=== PATIENT | female | born 1945 | race Caucasian/White ===

== ENCOUNTER → 2018-03-30 10:24 | Outpatient (CLI) | payer MEDICARE, OTHER, SELFPAY ==
[2018-03-30 13:39] LABS: Basophils # 0.1 K/mm3 (0-0.2); Basophils % 0.7 % (0.1-2.0); Eosinophils # 0.4 K/mm3 (0.0-0.4); Eosinophils % 5.4 % (0.1-12.0); Hematocrit 43.7 % (37.0-47.0); Hemoglobin 13.9 g/dL (12.2-16.2); Lymphocytes # 3.3 K/mm3 (0.7-4.5); Lymphocytes % 40.5 K/mm3 (10-50); Mean Corpuscular HGB Conc 31.9 g/dL (31.8-35.4); Mean Corpuscular Hemoglobin 30.9 pg (27.0-31.2); Mean Corpuscular Volume 96.9 fl (81-99); Monocytes # 0.7 K/mm3 (0.1-1.0); Monocytes % 8.3 % (1.7-9.3); Neutrophils # 3.7 K/mm3 (1.8-7.8); Neutrophils % 45.2 % (37.0-80.0); Platelet Count 219 K/mm3 (142-424); Red Blood Count 4.51 M/mm3 (4.20-5.40); Red Cell Distribution Width 13.2 % (11.5-17.5); White Blood Count 8.2 K/mm3 (4.8-10.8)
[2018-03-30 13:42] LABS: Alanine Aminotransferase 27 U/L (12-78); Albumin Level 3.4 gm/dL (3.4-5.0); Albumin/Globulin Ratio 0.9 (1.1-1.8); Alkaline Phosphatase 55 U/L (46-116); Aspartate Amino Transferase 24 U/L (15-37); Bilirubin,Total 0.2 mg/dL (0.2-1.0); Blood Urea Nitrogen 19 mg/dL (7-18); Carbon Dioxide 25 mmol/L (21.0-32.0); Chloride 101 mmol/L (98-107); Creatinine,Serum 0.76 mg/dL (0.55-1.02); Estimated Glomerular Filt Rate 75 ml/min (>60); GFR (African American) 91 ML/MIN (>60); Globulin 3.7 gm/dl (1.3-3.2); Glucose 190 mg/dL (74-106); Sodium 140 mmol/L (136-145); Total Protein,Serum 7.1 gm/dL (6.4-8.2)
== END ==
PROVIDERS: PCP Nurse Practitioner Family; Visit Provider Nurse Practitioner Family
DX: R31.9 Hematuria, unspecified (principal)
CPT/HCPCS: 36415; 80053; 85025

== ENCOUNTER → 2019-01-05 08:39 | Outpatient (CLI) | payer MEDICARE, OTHER, SELFPAY ==
[2019-01-05 14:05] LABS: Basophils # 0.1 K/mm3 (0-0.2); Basophils % 0.7 % (0.1-2.0); Eosinophils # 0.5 K/mm3 (0.0-0.4); Eosinophils % 5.4 % (0.1-12.0); Hematocrit 44.3 % (37.0-47.0); Hemoglobin 14.8 g/dL (12.2-16.2); Lymphocytes # 3.8 K/mm3 (0.7-4.5); Lymphocytes % 40.9 % (10-50); Mean Corpuscular HGB Conc 33.5 g/dL (31.8-35.4); Mean Corpuscular Volume 98.5 fl (81-99); Mean Platelet Volume 9.1 fl (7.4-10.4); Monocytes # 0.6 K/mm3 (0.1-1.0); Monocytes % 6.8 % (1.7-9.3); Neutrophils # 4.3 K/mm3 (1.8-7.8); Neutrophils % 46.2 % (37.0-80.0); Platelet Count 217 K/mm3 (142-424); Red Blood Count 4.49 M/mm3 (4.20-5.40); Red Cell Distribution Width 13.6 % (11.5-17.5); White Blood Count 9.2 K/mm3 (4.8-10.8)
[2019-01-05 14:39] LABS: Alanine Aminotransferase 80 U/L (12-78); Albumin Level 3.4 gm/dL (3.4-5.0); Albumin/Globulin Ratio 0.9 (1.1-1.8); Alkaline Phosphatase 53 U/L (46-116); Anion Gap 16.4 mEq/L (5-15); Aspartate Amino Transferase 83 U/L (15-37); Bilirubin,Total 0.3 mg/dL (0.2-1.0); Blood Urea Nitrogen 21 mg/dL (7-18); Calcium 10.1 mg/dL (8.5-10.1); Carbon Dioxide 27 mmol/L (21.0-32.0); Chloride 101 mmol/L (98-107); Chol/HDL Ratio 2.6 (1-3.5); Cholesterol 104 mg/dL (140-200); Creatinine,Serum 0.82 mg/dL (0.55-1.02); Estimated Glomerular Filt Rate 68 ml/min (>60); GFR (African American) 83 ML/MIN (>60); Globulin 3.8 gm/dl (1.3-3.2); Glucose 208 mg/dL (74-106); HDL Cholesterol 40 mg/dL (29-89); LDL Cholesterol 35 mg/dL (0-130); Potassium 3.4 mmoL/L (3.5-5.1); Sodium 141 mmol/L (136-145); Total Protein,Serum 7.2 gm/dL (6.4-8.2); Triglycerides 147 mg/dL (30-200); VLDL Cholesterol 29 mg/dL (0-40)
[2019-01-05 14:45] LABS: Hemoglobin A1C 8.4 % (0.0-7.0)
[2019-01-06 13:09] LABS: Microalbumin, Urine 439.7 ug/mL (Not Estab.)
== END ==
PROVIDERS: PCP Physician Assistant; Visit Provider Physician Assistant
DX: I10 Essential (primary) hypertension (principal); E11.9 Type 2 diabetes mellitus without complications; E78.5 Hyperlipidemia, unspecified
CPT/HCPCS: 36415; 80053; 80061; 82043; 83036; 85025

== ENCOUNTER → 2019-01-11 07:05 | Outpatient (CLI) | payer MEDICARE, OTHER, SELFPAY ==
[2019-01-11 13:40] LABS: Anion Gap 16.7 mEq/L (5-15); Blood Urea Nitrogen 20 mg/dL (7-18); Calcium 9.8 mg/dL (8.5-10.1); Carbon Dioxide 26 mmol/L (21.0-32.0); Chloride 103 mmol/L (98-107); Creatinine,Serum 0.99 mg/dL (0.55-1.02); Estimated Glomerular Filt Rate 55 ml/min (>60); GFR (African American) 67 ML/MIN (>60); Glucose 213 mg/dL (74-106); Potassium 3.7 mmoL/L (3.5-5.1); Sodium 142 mmol/L (136-145)
== END ==
PROVIDERS: PCP Physician Assistant; Visit Provider Physician Assistant
DX: E87.6 Hypokalemia (principal)
CPT/HCPCS: 36415; 80048

== ENCOUNTER → 2021-03-21 08:35 | Outpatient (CLI) | payer MEDICARE, OTHER, SELFPAY ==
[2021-03-21 14:49] LABS: Chloride 105 mmol/L (98-107); Sodium 142 mmol/L (136-145)
[2021-03-21 14:51] LABS: Blood Urea Nitrogen 19 mg/dl (7-17); Estimated Glomerular Filt Rate 70 ml/min (>60); GFR (African American) 85 ML/MIN (>60)
[2021-03-21 14:52] LABS: Alanine Aminotransferase 14 U/L (12-78); Albumin/Globulin Ratio 1.5 (1.1-1.8); Alkaline Phosphatase 58 U/L (38-126); Aspartate Amino Transferase 24 U/L (14-36); Bilirubin,Total 0.2 mg/dl (0.2-1.3); Calcium 9.3 mg/dl (8.4-10.2); Carbon Dioxide 27 mmol/L (22.0-30.0); Globulin 2.6 g/dL (1.3-3.2); Glucose 88 mg/dl (74-100); Total Protein,Serum 6.6 g/dl (6.3-8.2)
== END ==
PROVIDERS: Visit Provider Nurse Practitioner Family
DX: I10 Essential (primary) hypertension (principal)
CPT/HCPCS: 36415; 80053

== ENCOUNTER → 2021-08-19 10:47 | Outpatient (CLI) | payer MEDICARE, OTHER, SELFPAY | PROVIDERS: Visit Provider Surgery | DX: Z01.812 Encounter for preprocedural laboratory examination (principal); Z11.52 Encounter for screening for COVID-19; Z12.11 Encounter for screening for malignant neoplasm of colon | CPT/HCPCS: C9803; U0003; U0005 ==

== ENCOUNTER 2021-08-21 09:12 | Day surgery (SDC) | payer MEDICARE, OTHER, SELFPAY ==
[2021-08-16 10:04] VITALS: BMI 31.1
[2021-08-21 09:39] VITALS: BP 152/78; PULSE 83; RESP 18; O2SAT 97
[2021-08-21 10:06] VITALS: O2SAT 98
--- NOTE | 2021-08-21 10:06 | HMH.ANESCL ---
[facility] Anesthesia Checklist - Structural Data Admitted From: Home Planned Operative Procedure/s: colonoscopy Consent for Planned Operative Procedure(s) Verified: Yes - Airway Assessment C-Spine Mobility Assessed: Yes TMJ Mobility Assessed: Yes Dentition: Poor Dentition - Neurological Assessment Level of Consciousness: Awake, Alert, Appropriate - Anesthesia Plan Anesthesia Risk discussed: Yes Anesthesia Plan: Verified ASA Class: III Anesthesia Type: MAC [facility] History I have reviewed the patient's past medical history: Yes Medical History: Reports:: Diabetes Mellitus Type 2, Hyperlipidemia, Myocardial Infarction, Seizures Denies:: Cancer, Internal Pacemaker, MRSA *Have you ever received a pneumonia vaccine?: Yes *Have you received a flu vaccine this season?: Yes Anesthesia experience/problems:: none Other Surgeries: No: Pacemaker Amputation: No Fractures: No - *Social History Last grade of school completed: High school graduate Smoking Status: Never smoker Alcohol Intake: current Alcohol Intake Frequency:: holidays/special occasions only Substance Use Type: denies use *Occupational Status:: retired *Travel in the last 8 weeks: None Family Hx:: No significant family history
[2021-08-21 10:52] VITALS: BP 151/72; PULSE 84; RESP 18; TEMP 36.1; O2SAT 99
--- NOTE | 2021-08-21 10:53 | P.PCN_ITS ---
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 This was done at [facility] by Dr. Kaur back several years ago. She has had several colonoscopies which were aborted by gastroenterology due to sharp angulation and tortuosity of the sigmoid colon without complete evaluation of the colon. Dr. Enriquez did perform a full colonoscopy on 09/12/2015 at which time no adenomatous polyps were removed and he recommended a 5-year follow-up colonoscopy. Performing Provider:: Nicholas Zee MD Referring Provider:: Jennifer Ramos Sedation:: MAC sedation Procedure:: Patient was taken to endoscopy procedure room and positioned in lateral decubitus position. Adequate intravenous sedation was achieved with anesthesia titration of propofol. Variable stiffness Olympus colonoscope was inserted via the anus. With some difficulty it was advanced to the ileocolic anastomosis. Difficulty in advancement was due to extreme angulation and tortuosity of the sigmoid colon. Ileocolic anastomosis was clearly identified. Colonoscope was slowly withdrawn through the colon with careful surveillance. She did have some diverticulosis. However, there were no notable polyps. Retroflexion within the rectum revealed no evidence of any pathologic internal hemorrhoids. Colonoscope was withdrawn. Findings:: Significant angulation and tortuosity of the sigmoid colon Diverticulosis Recommendations:: May consider 5-year follow-up colonoscopy due to history of tubulovillous adenoma with high-grade dysplasia. However, given the patient's colon anatomy, age, and the fact that she had 2 colonoscopies without adenomatous lesions consideration may be given for Cologuard testing and possible contrast enema evaluation in the future. Complications:: None immediately apparent Estimated blood obtained (mL): 1
[2021-08-21 11:02] VITALS: BP 154/79; PULSE 87; RESP 18; O2SAT 98
[2021-08-21 11:12] VITALS: BP 148/71; PULSE 85; RESP 18; O2SAT 98
[2021-08-21 11:32] VITALS: BP 161/72; PULSE 83; RESP 18; O2SAT 98
[2022-07-10 10:54] LABS: POC Glucose,Bedside 106 (70-110)
== END 2021-08-21 11:32 | disposition home or self-care (01) ==
LOC: OUTP 09:15
PROVIDERS: PCP Nurse Practitioner Family; Visit Provider Surgery
PROC: 0DJD8ZZ Inspection of Lower Intestinal Tract, Via Natural or Artificial Opening Endoscopic (ICD-10-PCS; principal; 2021-08-21 10:30)
DX: K56.2 Volvulus (principal); K57.32 Diverticulitis of large intestine without perforation or abscess without bleeding; Z87.19 Personal history of other diseases of the digestive system; Z85.038 Personal history of other malignant neoplasm of large intestine; Z90.49 Acquired absence of other specified parts of digestive tract; E11.9 Type 2 diabetes mellitus without complications; E78.5 Hyperlipidemia, unspecified; I25.2 Old myocardial infarction; Z88.6 Allergy status to analgesic agent; Z88.8 Allergy status to other drugs, medicaments and biological substances; Z88.0 Allergy status to penicillin; Z79.899 Other long term (current) drug therapy
CPT/HCPCS: 45378; 82962

== ENCOUNTER → 2021-09-18 09:37 | Outpatient (CLI) | payer MEDICARE, OTHER, SELFPAY ==
[2021-09-18 14:37] LABS: Basophils # 0.1 K/mm3 (0-0.2); Eosinophils # 0.2 K/mm3 (0.0-0.4); Eosinophils % 3.8 % (0.1-12.0); Hematocrit 40.3 % (37.0-47.0); Hemoglobin 13.2 g/dL (12.2-16.2); Lymphocytes % 47.3 % (10-50); Mean Corpuscular HGB Conc 32.8 g/dL (31.8-35.4); Mean Corpuscular Hemoglobin 33.9 pg (27.0-31.2); Mean Corpuscular Volume 103.4 fl (81-99); Mean Platelet Volume 9.2 fl (7.4-10.4); Monocytes # 0.4 K/mm3 (0.1-1.0); Monocytes % 6.4 % (1.7-9.3); Neutrophils # 2.6 K/mm3 (1.8-7.8); Neutrophils % 41.3 % (37.0-80.0); Platelet Count 251 K/mm3 (142-424); Red Cell Distribution Width 14.4 % (11.5-17.5); White Blood Count 6.4 K/mm3 (4.8-10.8)
[2021-09-18 14:42] LABS: Alanine Aminotransferase 14 U/L (12-78); Albumin Level 3.8 g/dl (3.5-5.0); Albumin/Globulin Ratio 1.4 (1.1-1.8); Alkaline Phosphatase 66 U/L (38-126); Anion Gap 9.4 mEq/L (5-15); Aspartate Amino Transferase 23 U/L (14-36); Bilirubin,Total 0.2 mg/dl (0.2-1.3); Blood Urea Nitrogen 23 mg/dl (7-17); Calcium 9.4 mg/dl (8.4-10.2); Carbon Dioxide 30 mmol/L (22.0-30.0); Chloride 102 mmol/L (98-107); Chol/HDL Ratio 4.1 (1-3.5); Cholesterol 194 mg/dl (140-200); Estimated Glomerular Filt Rate 61 ml/min (>60); GFR (African American) 74 ML/MIN (>60); Globulin 2.8 g/dL (1.3-3.2); Glucose 115 mg/dl (74-100); HDL Cholesterol 47 mg/dl (40-60); Potassium 4.4 mmoL/L (3.5-5.1); Sodium 137 mmol/L (136-145); Total Protein,Serum 6.6 g/dl (6.3-8.2); Triglycerides 184 mg/dl (30-150); VLDL Cholesterol 37 mg/dL (0-40)
[2021-09-18 14:54] LABS: Direct LDL Cholesterol 106.24 mg/dL (100-129)
[2021-09-18 15:01] LABS: Free Thyroxine Index 3.4 ug/dL (5.93-13.13); Triiodothryronine (T3) Uptake 34 % (23.5-40.5)
[2021-09-18 15:14] LABS: Thyroid Stimulating Hormone 2.51 uIU/mL (0.465-4.68)
[2021-09-18 15:18] LABS: Hemoglobin A1C 5.6 % (4.0-6.0)
== END ==
PROVIDERS: Visit Provider Nurse Practitioner Family
DX: I10 Essential (primary) hypertension (principal); E11.9 Type 2 diabetes mellitus without complications; E78.2 Mixed hyperlipidemia; Z79.84 Long term (current) use of oral hypoglycemic drugs
CPT/HCPCS: 36415; 80053; 80061; 82043; 83036; 84436; 84443; 84479; 85025

== ENCOUNTER → 2022-01-09 10:00 | Outpatient (CLI) | payer MEDICARE, OTHER, SELFPAY ==
[2022-01-09 14:36] LABS: Alanine Aminotransferase 17 U/L (12-78); Albumin Level 3.7 g/dl (3.5-5.0); Albumin/Globulin Ratio 1.4 (1.1-1.8); Alkaline Phosphatase 58 U/L (38-126); Anion Gap 10.2 mEq/L (5-15); Aspartate Amino Transferase 22 U/L (14-36); Bilirubin,Total 0.5 mg/dl (0.2-1.3); Blood Urea Nitrogen 32 mg/dl (7-17); Calcium 9.3 mg/dl (8.4-10.2); Carbon Dioxide 27 mmol/L (22.0-30.0); Chloride 107 mmol/L (98-107); Chol/HDL Ratio 3.3 (1-3.5); Cholesterol 164 mg/dl (140-200); Estimated Glomerular Filt Rate 48 ml/min (>60); GFR (African American) 58 ML/MIN (>60); Globulin 2.6 g/dL (1.3-3.2); Glucose 97 mg/dl (74-100); HDL Cholesterol 50 mg/dl (40-60); Potassium 4.2 mmoL/L (3.5-5.1); Sodium 140 mmol/L (136-145); Total Protein,Serum 6.3 g/dl (6.3-8.2); Triglycerides 116 mg/dl (30-150); VLDL Cholesterol 23 mg/dL (0-40)
[2022-01-09 14:38] LABS: Basophils % 0.4 % (0.1-2.0); Eosinophils # 0.3 K/mm3 (0.0-0.4); Eosinophils % 4.4 % (0.1-12.0); Hematocrit 38.1 % (37.0-47.0); Hemoglobin 12.2 g/dL (12.2-16.2); Lymphocytes # 2.3 K/mm3 (0.7-4.5); Lymphocytes % 35.6 % (10-50); Mean Corpuscular HGB Conc 32.1 g/dL (31.8-35.4); Mean Corpuscular Hemoglobin 33.5 pg (27.0-31.2); Mean Corpuscular Volume 104.3 fl (81-99); Mean Platelet Volume 9.8 fl (7.4-10.4); Monocytes # 0.5 K/mm3 (0.1-1.0); Monocytes % 8.4 % (1.7-9.3); Neutrophils # 3.3 K/mm3 (1.8-7.8); Neutrophils % 51.2 % (37.0-80.0); Platelet Count 201 K/mm3 (142-424); Red Blood Count 3.65 M/mm3 (4.20-5.40); White Blood Count 6.4 K/mm3 (4.8-10.8)
[2022-01-09 14:41] LABS: Hemoglobin A1C 5.2 % (4.0-6.0)
[2022-01-09 14:48] LABS: Direct LDL Cholesterol 72.01 mg/dL (100-129)
== END ==
PROVIDERS: Visit Provider Nurse Practitioner Family
DX: I10 Essential (primary) hypertension (principal); E11.9 Type 2 diabetes mellitus without complications; E78.2 Mixed hyperlipidemia; G40.909 Epilepsy, unspecified, not intractable, without status epilepticus; Z79.84 Long term (current) use of oral hypoglycemic drugs
CPT/HCPCS: 36415; 80053; 80061; 82043; 83036; 85025

== ENCOUNTER 2022-01-28 10:00 | Outpatient (RCR) | payer MEDICARE, OTHER, SELFPAY | END 2022-02-11 09:48 | disposition home or self-care (01) | LOC: PT.CARL 10:00 | PROVIDERS: PCP Nurse Practitioner Family; Visit Provider Psychiatry & Neurology Neurology | DX: R26.89 Other abnormalities of gait and mobility (principal) | CPT/HCPCS: 97110; 97112; 97163; 97164; 97530 ==

== ENCOUNTER → 2022-04-29 09:29 | Outpatient (CLI) | payer MEDICARE, OTHER, SELFPAY ==
[2022-04-29 14:53] LABS: Chol/HDL Ratio 2.6 (1-3.5); Cholesterol 109 mg/dl (140-200); HDL Cholesterol 42 mg/dl (40-60); Triglycerides 151 mg/dl (30-150); VLDL Cholesterol 30 mg/dL (0-40)
[2022-04-29 15:05] LABS: C-Reactive Protein 0.7 mg/L (0-4); Direct LDL Cholesterol 35.48 mg/dL (100-129)
[2022-04-29 15:14] LABS: 25-OH Vitamin D, Total 57.8 ng/mL (30-100)
[2022-04-29 15:22] LABS: Erythrocyte Sedimentation Rate 15 mm/hr (0-30)
[2022-04-29 15:28] LABS: Thyroid Stimulating Hormone 0.97 uIU/mL (0.465-4.68)
[2022-04-29 15:39] LABS: Hemoglobin A1C 6.3 % (4.0-6.0)
[2022-05-01 11:13] LABS: RA Latex Turbid. <10.0 IU/mL (<14.0)
[2022-05-03 14:12] LABS: Antinuclear Antibodies, IFA Negative (.)
== END ==
PROVIDERS: PCP Nurse Practitioner; Visit Provider Nurse Practitioner
DX: E11.9 Type 2 diabetes mellitus without complications (principal); E55.9 Vitamin D deficiency, unspecified; M25.539 Pain in unspecified wrist; R53.82 Chronic fatigue, unspecified; Z79.84 Long term (current) use of oral hypoglycemic drugs
CPT/HCPCS: 36415; 80061; 82306; 83036; 84443; 85651; 86038; 86140; 86431

== ENCOUNTER → 2022-09-29 15:00 | Outpatient (CLI) | payer MEDICARE, OTHER, SELFPAY | PROVIDERS: PCP Family Medicine; Visit Provider Family Medicine | DX: J02.9 Acute pharyngitis, unspecified (principal) | CPT/HCPCS: 87070 ==

== ENCOUNTER → 2022-10-20 10:37 | Outpatient (CLI) | payer MEDICARE, OTHER, SELFPAY ==
[2022-10-20 11:23] LABS: Basophils # 0.1 K/mm3 (0-0.2); Basophils % 0.7 % (0.1-2.0); Eosinophils # 0.2 K/mm3 (0.0-0.4); Hematocrit 47.9 % (37.0-47.0); Lymphocytes # 2.3 K/mm3 (0.7-4.5); Lymphocytes % 29.8 % (10-50); Mean Corpuscular HGB Conc 33.4 g/dL (31.8-35.4); Mean Corpuscular Hemoglobin 33.8 pg (27.0-31.2); Mean Corpuscular Volume 101.1 fl (81-99); Mean Platelet Volume 9.4 fl (7.4-10.4); Monocytes # 0.7 K/mm3 (0.1-1.0); Monocytes % 8.8 % (1.7-9.3); Neutrophils # 4.6 K/mm3 (1.8-7.8); Neutrophils % 58.7 % (37.0-80.0); Platelet Count 191 K/mm3 (142-424); Red Blood Count 4.74 M/mm3 (4.20-5.40); Red Cell Distribution Width 13.9 % (11.5-17.5); White Blood Count 7.9 K/mm3 (4.8-10.8)
[2022-10-20 11:50] LABS: Chloride 99 mmol/L (98-107); Free T4 (Free Thyroxine) 1.57 ng/dl (0.78-2.19); Potassium 3.2 mmoL/L (3.5-5.1); Sodium 140 mmol/L (136-145)
[2022-10-20 11:52] LABS: Alanine Aminotransferase 21 U/L (12-78); Aspartate Amino Transferase 37 U/L (14-36); Blood Urea Nitrogen 20 mg/dl (7-17); Estimated Glomerular Filt Rate 44 ml/min (>60); GFR (African American) 53 ML/MIN (>60)
[2022-10-20 11:53] LABS: Albumin/Globulin Ratio 1.3 (1.1-1.8); Alkaline Phosphatase 81 U/L (38-126); Anion Gap 16.2 mEq/L (5-15); Bilirubin,Total 0.4 mg/dl (0.2-1.3); Calcium 9.5 mg/dl (8.4-10.2); Carbon Dioxide 28 mmol/L (22.0-30.0); Globulin 3.1 g/dL (1.3-3.2); Glucose 174 mg/dl (74-100); Total Protein,Serum 7.1 g/dl (6.3-8.2)
== END ==
PROVIDERS: PCP Family Medicine; Visit Provider Family Medicine
DX: R53.1 Weakness (principal)
CPT/HCPCS: 36415; 80053; 84439; 84443; 85025

== ENCOUNTER → 2022-10-21 08:16 | Outpatient (CLI) | payer MEDICARE, OTHER, SELFPAY ==
--- NOTE | 2022-10-21 08:16 | CT_ITS ---
FINAL REPORT CLINICAL HISTORY: weakness and falls FINDINGS: Axial images of the head were obtained without and with contrast. Coronal reformatted images were also obtained. This study was performed with techniques to keep radiation doses as low as reasonably achievable (ALARA). Individualized dose reduction techniques using automated exposure control or adjustment of mA and/or kV according to the patient's size were employed. There is generalized age-appropriate atrophy. There is mild ventriculomegaly. Periventricular low-attenuation areas are seen consistent with mild chronic ischemic changes. There is no evidence of intracranial hemorrhage or mass. There is no evidence of acute infarct. There is no evidence of shift of the midline structures. No skull abnormality is seen on the bone window images. No abnormal contrast enhancement is seen. IMPRESSION: Atrophy and mild periventricular chronic ischemic changes. No acute intracranial abnormality identified. Reviewed, Interpreted and Dictated by Nicholas Dyer III, MD Transcribed by Vasile Pineda Authenticated and [facility]
--- NOTE | 2022-10-21 08:16 | CT_ITS ---
FINAL REPORT TECHNIQUE: Axial images were obtained from the lung bases through the pubic symphysis before and after the administration of intravenous contrast. This study was performed with techniques to keep radiation doses as low as reasonably achievable (ALARA). Individualized dose reduction techniques using automated exposure control or adjustment of mA and/or kV according to the patient's size were employed. CLINICAL HISTORY: abdominal pain FINDINGS: Precontrast images demonstrate no evidence of nephrolithiasis or hydronephrosis. Abdomen: There is a 6 mm noncalcified nodule in the right lung base. There is mild bibasilar atelectasis or scarring. The liver parenchyma is homogeneous. There is evidence of cholecystectomy. The spleen, pancreas and adrenal glands are unremarkable. The kidneys enhance normally. There is no mass or adenopathy identified. There is no evidence of bowel obstruction. Pelvis: The appendix is not identified. Postoperative changes are seen in the colon. There is diverticulosis of the sigmoid colon. There has been hysterectomy. The urinary bladder is unremarkable. There is no mass, free fluid or adenopathy. IMPRESSION: Noncalcified 6 mm are right lung base nodule. Recommend 6 month follow-up. Diverticulosis without evidence of diverticulitis. Reviewed, Interpreted and Dictated by Nicholas Dyer III, MD Transcribed by Vasile Pineda Authenticated and [facility]
--- NOTE | 2022-10-21 08:24 | XR_ITS ---
FINAL REPORT CLINICAL HISTORY: weight loss, weakness, fall FINDINGS: Two views of the chest were obtained. The heart size and pulmonary vascularity are within normal limits. The mediastinum is normal. There is mild left base scarring or atelectasis. There is no pneumothorax. The bony thorax is intact. IMPRESSION: Mild left lung base scarring or atelectasis. Reviewed, Interpreted and Dictated by Nicholas Dyer III, MD Transcribed by Alba Soni Authenticated and . [facility]
== END ==
PROVIDERS: PCP Family Medicine; Visit Provider Family Medicine
DX: R10.9 Unspecified abdominal pain (principal); R53.1 Weakness; W19.XXXA Unspecified fall, initial encounter; R63.4 Abnormal weight loss; Z68.28 Body mass index [BMI] 28.0-28.9, adult
CPT/HCPCS: 70470; 71046; 74178; Q9967

== ENCOUNTER → 2022-11-03 13:05 | Outpatient (CLI) | payer MEDICARE, OTHER, SELFPAY ==
--- NOTE | 2022-11-03 13:50 | US_ITS ---
FINAL REPORT TECHNIQUE: Sonographic images of the thyroid gland were obtained in the longitudinal and transverse planes. CLINICAL HISTORY: low tsh level FINDINGS: The right lobe measures 3.1 x 0.9 x 1.2 cm. The right lobe is homogeneous. There are several small colloid cyst in several solid nodules. There is a hypoechoic nodule in the upper pole measuring 8 mm. The left lobe measures 3.3 x 0.8 x 1.4 cm. The left lobe is homogeneous. There are several small hypoechoic nodules and colloid cysts. The largest nodule measures 5-6 mm. The isthmus measures 2 mm. This is normal. IMPRESSION: Bilateral colloid cysts and thyroid nodules. TI-RADS 4 nodule in the right upper pole measures less than 1 cm. No recommendation due to size. Reviewed, Interpreted and Dictated by Maria Dolores Norton MD Transcribed by Vaishnavi Guallpa Authenticated and [facility]
[2022-11-03 15:57] LABS: T4 (Thyroxine) 11.7 ug/dl (5.53-11.0)
[2022-11-03 16:47] LABS: Vitamin B12 774 pg/mL (239-931)
[2022-11-03 17:05] LABS: Folate > 20.00 ng/mL
[2022-11-05 10:15] LABS: Triiodothyronine (T3) Free 3.4 pg/mL (2.0-4.4); Triiodothyronine (T3) Total 180 ng/dL (71-180)
== END ==
PROVIDERS: PCP Family Medicine; Visit Provider Family Medicine
DX: R63.4 Abnormal weight loss (principal); R79.89 Other specified abnormal findings of blood chemistry; E11.9 Type 2 diabetes mellitus without complications; R53.83 Other fatigue; Z79.84 Long term (current) use of oral hypoglycemic drugs
CPT/HCPCS: 36415; 76536; 82607; 82746; 84436; 84480; 84481

== ENCOUNTER → 2022-12-15 23:38 | Outpatient (CLI) | payer MEDICARE, OTHER, SELFPAY ==
[2022-12-15 17:41] LABS: Microalbumin/Creatinine Ratio 30.2
[2022-12-15 17:50] LABS: Creatinine,Urine Random 37 mg/dL (Not Estab.)
== END ==
PROVIDERS: PCP Family Medicine; Visit Provider Family Medicine
DX: E11.9 Type 2 diabetes mellitus without complications (principal); Z79.84 Long term (current) use of oral hypoglycemic drugs
CPT/HCPCS: 82043; 82570

== ENCOUNTER → 2023-01-09 14:40 | Outpatient (CLI) | payer MEDICARE, OTHER, SELFPAY ==
--- NOTE | 2023-01-09 14:40 | MR_ITS ---
FINAL REPORT TECHNIQUE: Multiplanar and multisequence imaging of the brain was obtained without contrast. CLINICAL HISTORY: Seizure, abnormal movement disorder UNABLE TO REMEMBER THINGS HX OF SEIZURES COMPARISON: none FINDINGS: There is no mass effect or midline shift. There is global atrophy.. There are no areas of abnormal signal intensity. The cerebellum and brainstem have a normal appearance. There are no areas of restricted diffusion on diffusion weighted images to suggest acute infarct. The posterior fossa is unremarkable. There is fluid in the left greater than right mastoid air cells. IMPRESSION: No acute intracranial abnormality. Atrophy. Reviewed, Interpreted and Dictated by Maria Dolores Norton MD Transcribed by Noris Macario Authenticated and [facility]
== END ==
PROVIDERS: PCP Family Medicine; Visit Provider Specialist
DX: G40.909 Epilepsy, unspecified, not intractable, without status epilepticus (principal)
CPT/HCPCS: 70551

== ENCOUNTER → 2023-01-19 15:31 | Outpatient (CLI) | payer MEDICARE, OTHER, SELFPAY ==
--- NOTE | 2023-01-19 15:40 | XR_ITS ---
FINAL REPORT CLINICAL HISTORY: severe lower back pain, falls frequently. FINDINGS: LUMBAR SPINE Seven views including flexion and extension views were obtained. There is no acute fracture. There is no malalignment. There is no abnormal movement with flexion or extension. There are mild and moderate degenerative changes with osteophytes. There is multilevel facet arthropathy. There are moderate vascular calcifications. There are postoperative changes in the abdomen. IMPRESSION: Mild and moderate degenerative changes as above. No abnormal movement with flexion or extension. Reviewed, Interpreted and Dictated by Nicholas Dyer III, MD Transcribed by Alba Soni Authenticated and [facility]
== END ==
PROVIDERS: PCP Family Medicine; Visit Provider Specialist
DX: G89.29 Other chronic pain (principal); M54.50 Low back pain, unspecified
CPT/HCPCS: 72114

== ENCOUNTER → 2023-02-17 08:49 | Outpatient (CLI) | payer MEDICARE, OTHER, SELFPAY ==
[2023-02-17 10:56] LABS: Valproic Acid, (Depakene) 59.5 ug/ml (50-100)
== END ==
PROVIDERS: PCP Family Medicine; Visit Provider Specialist
DX: G40.909 Epilepsy, unspecified, not intractable, without status epilepticus (principal)
CPT/HCPCS: 36415; 80164

== ENCOUNTER 2023-03-11 11:00 | Outpatient (RCR) | payer MEDICARE, OTHER, SELFPAY ==
--- NOTE | 2023-02-02 12:40 | HMH.PTOPEV ---
PT Outpatient Evaluation Rehab PT Outpatient Evaluation Start: 02/02/23 11:07 Freq: Status: Active Protocol: Document 02/02/23 11:07 SIXTO (Rec: 02/02/23 12:39 [email or web address] [id number]) E-signed By Prateek Quinn, PT Outpatient Therapy Subjective History Subjective History Pt. is a 77 year old female whom presents to [facility] in [place] for the initial evaluation this date( 02/02/23) w/ c/o subacute and constant lumbar P!, stiffness, and falls of traumatic onset 2 months ago secondary to falling in her hallway at home . Pt. reports, I've had several falls since I've come here last. Pt. reports Physical Therapy was really helpful the last time for treating gait abnormalaties and imbalance. Pt. reports regressing since previous Physical Therapy. Pt. reports having several falls since coming to previous Physical Therapy, states, I just can't stand up for very long. Pt. vocalizes having an increase in LBP! and muscle weakness w/ prolonged standing/ambulation that can lead to an increase risk for a fall. Pt. also vocalizes having an increase in LBP! w/ prolonged sitting, and laying down in bed. Pt. reports having no symptom relief w/ ice/MHP, denies wanting to take any medication for symptoms. Pt. denies having any injections for current complaint. Recent diagnostic imaging(radiograph) positive for multi-level degenerative changes in the lumbar spine. Pt. denies numbness/tingling into BLEs at this time. Pt. denies history of pacemaker, denies history of cancer(self), denies latex
== END 2023-03-11 12:00 | disposition home or self-care (01) ==
LOC: PT 11:00
PROVIDERS: PCP Family Medicine; Visit Provider Specialist
DX: M54.50 Low back pain, unspecified (principal); G89.29 Other chronic pain
CPT/HCPCS: 97010; 97014; 97035; 97110; 97163; 97535; G0283

== ENCOUNTER → 2023-04-30 12:31 | Outpatient (CLI) | payer MEDICARE, OTHER, SELFPAY ==
--- NOTE | 2023-04-30 12:32 | CT_ITS ---
FINAL REPORT TECHNIQUE: Thin section axial images were obtained from the lung apices through the upper abdomen without contrast. This study was performed with techniques to keep radiation doses as low as reasonably achievable (ALARA). Individualized dose reduction techniques using automated exposure control or adjustment of mA and/or kV according to the patient's size were employed. CLINICAL HISTORY: follow-up on lung nodule prior cxr on 10/21/22 COMPARISON: Abdomen and pelvic CT from 10/21/2022 FINDINGS: There are multiple small mediastinal nodes present but no significant adenopathy is seen. There is a small pericardial effusion present.. There is a right lower lobe nodule, seen best on axial image #50, measuring 8 mm and essentially unchanged since the prior CT of October 2022. Changes of remote granulomatous disease are also present. Limited, unenhanced evaluation of the upper abdomen is without acute abnormality. There is no acute osseous abnormality. IMPRESSION: Stable right lower lobe nodule since prior CT of October 2022. Recommend continued follow-up with chest CT in 6 months. Reviewed, Interpreted and Dictated by Maria Dolores Norton MD Transcribed by Natalie Hughes Authenticated and [facility]
== END ==
PROVIDERS: PCP Family Medicine; Visit Provider Family Medicine
DX: Z87.898 Personal history of other specified conditions (principal)
CPT/HCPCS: 71250

== ENCOUNTER 2023-08-08 12:11 | Emergency (ER) | payer MEDICARE, OTHER, SELFPAY ==
[2023-08-08] VITALS (14 sets, daily range): BP systolic 114–195; BP diastolic 44–77; PULSE 72–87; RESP 14–18; TEMP 36.7–36.8; O2SAT 95–98; BMI 29.0
[2023-08-08 12:33] LABS: Microscopic, Urine URINE MICROSCOPIC (MICROSCOPIC)
--- NOTE | 2023-08-08 12:47 | CT_ITS ---
PROCEDURE INFORMATION: Exam: CT Abdomen And Pelvis With Contrast Exam date and time: 08/08/2023 1:33 PM Age: 77 years old Clinical indication: Abdominal pain; Other: Lower abd pain; Additional info: Low abdominal pain/deion hematuria TECHNIQUE: Imaging protocol: Computed tomography of the abdomen and pelvis with contrast. Radiation optimization: All CT scans at this facility use at least one of these dose optimization techniques: automated exposure control; mA and/or kV adjustment per patient size (includes targeted exams where dose is matched to clinical indication); or iterative reconstruction. Contrast material: ISOVUE; Contrast volume: 75 ml; Contrast route: IV; REPORTING DATA: Count of CT and Cardiac NM exams in prior 12 months: This patient has received 3 known CTs and 0 known cardiac nuclear medicine studies in the 12 months prior to the current study. COMPARISON: CT ABDOMEN PELVIS WO/W CON 10/21/2022 8:55 AM FINDINGS: Lungs: Right lower lobe granuloma. 7 mm right lower lobe nodule is unchanged Liver: No focal hepatic lesions. Gallbladder and bile ducts: There has been a cholecystectomy. Pancreas: No peripancreatic fluid stranding. No main pancreatic ductal dilation. Spleen: No splenomegaly. Multiple splenic granulomas Adrenal glands: The adrenal glands are normal. Kidneys and ureters: Nephrograms are symmetric. No nephrolithiasis or hydroureteronephrosis on either side. No solid lesions Stomach and bowel: Status post right hemicolectomy. Right small bowel loops demonstrate mild fluid distention. No discrete transition point Appendix: There has been an appendectomy. Intraperitoneal space: There is no evidence of free intraperitoneal or pelvic fluid. Vasculature: Aorta is nonaneurysmal. Lymph nodes: No lymphadenopathy. Urinary bladder: Urinary bladder is unremarkable. Reproductive: Status post hysterectomy. Bones/joints: No acute osseous abnormality. Focal enostosis at L2 vertebra. Soft tissues: Unremarkable. IMPRESSION: 1. Nephrograms are symmetric. No nephrolithiasis or hydroureteronephrosis on either side. No solid lesions 2. Mild fluid distention of right small-bowel loops can be seen in the context of enteritis. No discrete transition point. Status post right hemicolectomy. 3. 7 mm right lower lobe noduleFor patients at low risk (minimal or absent history of smoking and of other known risk factors), recommend CT Chest at 6-12 months, then consider CT Chest at 18-24 months. For patients at high risk (history of smoking or of other known risk factors), recommend CT Chest at 6-12 months, then CT Chest at 18-24 months. (Reference: Yumi) REFERENCES: Yumi Sweeney et al. Guidelines for Management of Incidental Pulmonary Nodules Detected on CT Images: From the Fleischner Society 2017. Radiology. 2017;284(1):228-243.
--- NOTE | 2023-08-08 12:49 | HMH.EDGENADL ---
Discharge Plan Disposition Patient Disposition: Home, Self-Care Prescriptions Prescriptions: New cefdinir 300 mg capsule 300 mg PO BID 10 Days Qty: 20 0RF ondansetron 4 mg tablet,disintegrating 4 mg PO Q8H PRN (Reason: nausea and vomiting) 4 Days Qty: 12 0RF No Action montelukast 10 mg tablet 10 mg PO DAILY Qty: 90 3RF pioglitazone 15 mg tablet 15 mg PO DAILY Qty: 90 3RF triamterene-hydrochlorothiazid 37.5-25 mg tablet 1 tab PO DAILY 90 Days Qty: 90 0RF divalproex 250 mg tablet,delayed release (DR/EC) 250 mg PO BID 90 Days Qty: 180 0RF Tradjenta 5 mg tablet 5 mg PO DAILY 90 Days Qty: 90 0RF clopidogrel 75 mg tablet 75 mg PO DAILY 90 Days Qty: 90 1RF metformin 1,000 mg tablet 1,000 mg PO BID 30 Days Qty: 60 0RF glipizide 10 mg tablet 10 mg PO DAILY 90 Days Qty: 90 0RF rosuvastatin 40 mg tablet 40 mg PO DAILY 90 Days Qty: 90 0RF aspirin 81 MG tablet,chewable 81 mg PO DAILY Referrals Follow up/Referrals: Alexander Whitehead MD [Primary Care Provider] - See instructions Activity Restrictions/Add. Instructions Additional Instructions/Restrictions: At this time it was felt you are safe to be discharged home. If new or worsening symptoms please do not hesitate to return the emergency department. Please follow-up with your family doctor this coming week for continued monitoring. Please take your medications as prescribed. Clinical Impressions Clinical Impression: Complicated urinary tract infection, Acute hemorrhagic cystitis Instructions Patient Instructions: DI for Urinary Tract Infection (UTI) Discharge ED Provider: Eldon Ontiveros General Adult HPI General Chief complaint: Urogenital-Female Stated complaint: blood when urinating Time Seen by Provider: 08/08/23 12:28 Mode of Arrival: Ambulatory Source of Information: Patient and Spouse Limitations: No Limitations Description of Symptoms (Recalled from ER Triage Doc. by RN): Patient reports pain with urination and blood in her urine since 11am. History of Present Illness HPI narrative: Patient is a 77-year-old female with past medical history of hypertension, diabetes, or coronary artery disease on dual antiplatelet therapy who presents emergency department for evaluation of deion hematuria. Onset was acute, 11 AM this morning. Lower abdominal pain with associated dysuria and hematuria causing her to present here for continued evaluation. No other acute complaints at this time. Related Data Home Medications Medication Instructions Recorded Confirmed aspirin 81 mg chewable tablet 81 mg PO DAILY Blood thinner 08/16/21 07/27/23 Previous Rx's Medication Instructions Recorded montelukast 10 mg tablet 10 mg PO DAILY #90 tabs 08/20/22 pioglitazone 15 mg tablet 15 mg PO DAILY #90 tabs 08/20/22 triamterene 37.5 1 tab PO DAILY bp 90 days #90 tabs 05/25/23 mg-hydrochlorothiazide 25 mg tablet divalproex 250 mg tablet,delayed 250 mg PO BID seizures 90 days 06/08/23 release #180 tabs linagliptin 5 mg tablet (Tradjenta) 5 mg PO DAILY Diabetes 90 days #90 06/08/23 tabs clopidogrel 75 mg tablet 75 mg PO DAILY Blood thinner 90 07/20/23 days #90 tabs metformin 1,000 mg tablet 1,000 mg PO BID Diabetes 30 days 07/23/23 #60 tabs glipizide 10 mg tablet 10 mg PO DAILY Diabetes 90 days 08/03/23 #90 tabs rosuvastatin 40 mg tablet 40 mg PO DAILY HLD 90 days #90 tabs 08/03/23 cefdinir 300 mg capsule 300 mg PO BID Urinary Tract 08/08/23 Infection 10 days #20 caps ondansetron 4 mg disintegrating 4 mg PO Q8H PRN nausea and 08/08/23 tablet vomiting 4 days #12 tabs Allergies Allergy/AdvReac Type Severity Reaction Status Date / Time codeine [CODEINE] Allergy Intermediate PASSES OUT Verified 05/19/23 13:53 Penicillins [PENICILLINS] Allergy Intermediate I-RASH Verified 05/19/23 13:53 phenytoin [From DILANTIN] Allergy Intermediate PASSES OUT Verified 05/19/23 13:53 [facility] Disclaimer: Antony
[2023-08-08 12:50] LABS: Bilirubin,Urine Negative (Negative); Blood, Urine 3+ (Negative); Glucose,Urine (UA) 2+ (Negative); Ketones,Urine 1+ (Negative); Leukocyte Esterase,Urine 1+ (Negative); Nitrate,Urine POSITIVE (Negative); Protein,Urine 3+ (Negative)
[2023-08-08 12:55] LABS: Appearance,Urine Turbid (Clear); Color,Urine Red (Yellow)
--- NOTE | 2023-08-08 12:56 | PC.NURSE ---
[facility] called to advise we will need another urine sample for send out. Pt made aware.
[2023-08-08 12:57] LABS: Bacteria,Urine 1+ /lpf; RBC,Urine TNTC #/hpf (0-3); Squamous Epithelial Cell,Urine Occasional #/hpf (0-5)
[2023-08-08 13:16] LABS: Basophils # 0.1 K/mm3 (0-0.2); Basophils % 0.4 % (0.1-2.0); Chloride 102 mmol/L (98-107); Eosinophils # 0.2 K/mm3 (0.0-0.4); Eosinophils % 1.7 % (0.1-12.0); Lymphocytes # 2.5 K/mm3 (0.7-4.5); Mean Corpuscular HGB Conc 34.1 g/dL (31.8-35.4); Mean Corpuscular Hemoglobin 34.9 pg (27.0-31.2); Mean Corpuscular Volume 102.4 fl (81-99); Mean Platelet Volume 8.9 fl (7.4-10.4); Monocytes # 0.8 K/mm3 (0.1-1.0); Monocytes % 6.2 % (1.7-9.3); Neutrophils % 73.8 % (37.0-80.0); Platelet Count 184 K/mm3 (142-424); Red Cell Distribution Width 13.7 % (11.5-17.5); Sodium 139 mmol/L (136-145); White Blood Count 13.6 K/mm3 (4.8-10.8)
[2023-08-08 13:19] LABS: Alanine Aminotransferase 43 U/L (12-78); Albumin Level 4.1 g/dl (3.5-5.0); Albumin/Globulin Ratio 1.4 (1.1-1.8); Alkaline Phosphatase 79 U/L (38-126); Aspartate Amino Transferase 50 U/L (14-36); Blood Urea Nitrogen 23 mg/dl (7-17); Carbon Dioxide 26 mmol/L (22.0-30.0); Creatinine Clearance Estimated 52 mL/min (50-200); Estimated Glomerular Filt Rate 61 ml/min (>60); GFR (African American) 73 ML/MIN (>60); Globulin 2.9 g/dL (1.3-3.2)
[2023-08-08 13:20] LABS: Calcium 9.6 mg/dl (8.4-10.2); Glucose 190 mg/dl (74-100)
[2023-08-08 13:22] LABS: Bilirubin,Total 0.1 mg/dl (0.2-1.3)
--- NOTE | 2023-08-08 14:20 | PC.NURSE ---
Dr. Ontiveros at [facility] to update pt on results and POC
--- NOTE | 2023-08-08 14:40 | PC.NURSE ---
Pt given Diet Pepsi for PO challenge
== END 2023-08-08 16:13 | disposition home or self-care (01) ==
PROVIDERS: Emergency Provider Emergency Medicine; PCP Family Medicine
DX: N39.0 Urinary tract infection, site not specified (principal); R10.30 Lower abdominal pain, unspecified; E11.9 Type 2 diabetes mellitus without complications; I25.10 Atherosclerotic heart disease of native coronary artery without angina pectoris; I11.9 Hypertensive heart disease without heart failure; Z79.84 Long term (current) use of oral hypoglycemic drugs; R31.0 Gross hematuria
CPT/HCPCS: 74177; 80053; 81001; 85025; 96361; 96365; 96375; 99284; 99285; J0131; J0696; Q9967

== ENCOUNTER → 2023-08-20 23:10 | Outpatient (CLI) | payer MEDICARE, OTHER, SELFPAY | PROVIDERS: PCP Family Medicine; Visit Provider Nurse Practitioner Family | DX: R30.0 Dysuria (principal) | CPT/HCPCS: 87086 ==

== ENCOUNTER → 2023-09-07 09:32 | Outpatient (CLI) | payer MEDICARE, OTHER, SELFPAY | PROVIDERS: PCP Family Medicine; Visit Provider Family Medicine | DX: R30.0 Dysuria (principal); B96.89 Other specified bacterial agents as the cause of diseases classified elsewhere | CPT/HCPCS: 87086 ==

== ENCOUNTER 2023-09-10 15:13 | Inpatient (IN) | payer MEDICARE, OTHER, SELFPAY ==
[2023-09-10 15:16] VITALS: BP 158/72; PULSE 91; RESP 20; TEMP 36.4; O2SAT 97; BMI 26.7
--- NOTE | 2023-09-10 15:26 | ECG_ITS ---
APPROVED REPORT Exam: Resting ECG HR:91 bpm ECG Measurements Heart Rate 91 AXES GA 153 P 51 QRSd 94 QRS -66 QT 372 T 118 QTc 421 Conclusion SINUS RHYTHM LEFT ANTERIOR FASCICULAR BLOCK [QRS AXIS <= -45, QR IN I, RS IN II] POSSIBLE ANTERIOR MYOCARDIAL INFARCTION , OF INDETERMINATE AGE [30 ms Q WAVE IN V3/V4, OR R < 0.2 mV IN V4] MODERATE T-WAVE ABNORMALITY, CONSIDER LATERAL ISCHEMIA [-0.1+ mV T-WAVE IN I/aVL/V5/V6] ABNORMAL ECG UNCONFIRMED REPORT Electronically signed by : Matteo Dunaway MD 09/11/2023 16:30:45
--- NOTE | 2023-09-10 15:26 | CT_ITS ---
PROCEDURE INFORMATION: Exam: CT Abdomen And Pelvis Without Contrast Exam date and time: 09/10/2023 5:41 PM Age: 77 years old Clinical indication: Abdominal pain; Additional info: Abdominal pain, n/v, weight loss, fatigue TECHNIQUE: Imaging protocol: Computed tomography of the abdomen and pelvis without contrast. Radiation optimization: All CT scans at this facility use at least one of these dose optimization techniques: automated exposure control; mA and/or kV adjustment per patient size (includes targeted exams where dose is matched to clinical indication); or iterative reconstruction. REPORTING DATA: Count of CT and Cardiac NM exams in prior 12 months: This patient has received 4 known CTs and 0 known cardiac nuclear medicine studies in the 12 months prior to the current study. COMPARISON: CT ABDOMEN PELVIS W CON 08/08/2023 1:33 PM FINDINGS: Lungs: Stable 8 mm subpleural nodule in the posterior right lower lobe dating back to 10/21/2022. No older studies available for comparison. Liver: Normal. No mass. Gallbladder and bile ducts: Cholecystectomy. No evident bile duct dilatation. Pancreas: Normal. No ductal dilation. Spleen: Normal. No splenomegaly. Adrenal glands: Normal. No mass. Kidneys and ureters: Normal. No hydronephrosis. Stomach and bowel: Right hemicolectomy to the mid transverse colon level. A few diverticula in the sigmoid. Colon otherwise unremarkable. GI tract structures otherwise unremarkable with no evident wall thickening allowing for incomplete distention. Appendix: Appendix surgically absent with right hemicolectomy. Intraperitoneal space: Unremarkable. No free air. No significant fluid collection. Vasculature: . Atherosclerotic changes of the aorta and iliacs noted. No evidence of aneurysm Lymph nodes: Unremarkable. No enlarged lymph nodes. Urinary bladder: Unremarkable as visualized. Reproductive: Hysterectomy. Bones/joints: Unremarkable. No acute fracture. Soft tissues: Unremarkable. IMPRESSION: 1. No acute abnormalities of the abdomen and pelvis. 2. 8 mm right lower lobe nodule stable dating back to 10/21/2022. For patients at low risk (minimal or absent history of smoking and of other known risk factors), recommend CT Chest at 6-12 months, then consider CT Chest at 18-24 months. For patients at high risk (history of smoking or of other known risk factors), recommend CT Chest at 6-12 months, then CT Chest at 18-24 months. (Reference: Yumi) REFERENCES: Yumi Sweeney et al. Guidelines for Management of Incidental Pulmonary Nodules Detected on CT Images: From the Fleischner Society 2017. Radiology. 2017;284(1):228-243.
--- NOTE | 2023-09-10 15:27 | XR_ITS ---
FINAL REPORT CLINICAL HISTORY: Fatigue, rule out PNA COMPARISON: 10/21/2022 FINDINGS: SINGLE-VIEW CHEST The heart size is normal. Patient is rotated to the right. The mediastinum is normal. There are chronic changes at the bases. There is no pneumothorax. Note is made of cervical fusion hardware. IMPRESSION: No acute cardiopulmonary process. Reviewed, Interpreted and Dictated by Gregorio Tsang MD Transcribed by Sushma Hansen Authenticated and [facility] [place] [place]
[2023-09-10 15:30] VITALS: BP 157/71; PULSE 94; O2SAT 98
[2023-09-10 16:01] VITALS: BP 136/66; PULSE 94; O2SAT 98
--- NOTE | 2023-09-10 16:01 | HMH.EDGENADL ---
Discharge Plan Disposition Patient Disposition: Admitted Condition: Fair Clinical Impressions Clinical Impression: Failure to thrive, FERMIN (acute kidney injury), SIRS (systemic inflammatory response syndrome) Discharge ED Provider: Angelica Alba General Adult HPI General Chief complaint: Weakness Stated complaint: weakness Time Seen by Provider: 09/10/23 15:20 Mode of Arrival: EMS Source of Information: Patient Limitations: No Limitations Description of Symptoms (Recalled from ER Triage Doc. by RN): pt to ed c/o nausea and generalized weakness. pt states she seen her pcp on thursday and was told she had a uti and a yeast infection. History of Present Illness HPI narrative: Patient has a PMHx significant for diabetes, hypertension, CAD without any intervention in the past who presents to the ED with complaints of failure to thrive. For the past several months, patient has reportedly had progressively worsening weakness. Symptoms have acutely worsened over the past week. Patient has been having significant nausea, vomiting, decreased appetite, diffuse body aches and generalized weakness. Patient was reportedly diagnosed with a UTI and a yeast infection on Thursday. Patient is on cefdinir for the UTI. Symptoms are progressively worsened and the patient has become bedridden and thus patient was brought to the ED by family today. Patient has not been able to ambulate on her own over the past week. Related Data Home Medications Medication Instructions Recorded Confirmed aspirin 81 mg chewable tablet 81 mg PO DAILY Blood thinner 08/16/21 09/07/23 Previous Rx's Medication Instructions Recorded montelukast 10 mg tablet 10 mg PO DAILY #90 tabs 08/20/22 pioglitazone 15 mg tablet 15 mg PO DAILY #90 tabs 08/20/22 divalproex 250 mg tablet,delayed 250 mg PO BID seizures 90 days 06/08/23 release #180 tabs clopidogrel 75 mg tablet 75 mg PO DAILY Blood thinner 90 07/20/23 days #90 tabs metformin 1,000 mg tablet 1,000 mg PO BID Diabetes 30 days 07/23/23 #60 tabs glipizide 10 mg tablet 10 mg PO DAILY Diabetes 90 days 08/03/23 #90 tabs rosuvastatin 40 mg tablet 40 mg PO DAILY HLD 90 days #90 tabs 08/03/23 ondansetron 4 mg disintegrating 4 mg PO Q8H PRN nausea and 08/08/23 tablet vomiting 4 days #12 tabs triamterene 37.5 1 tab PO DAILY bp 90 days #90 tabs 08/31/23 mg-hydrochlorothiazide 25 mg tablet fluconazole 150 mg tablet 150 mg PO Q3D yeast infection #7 09/07/23 tabs linagliptin 5 mg tablet (Tradjenta) 5 mg PO DAILY Diabetes 90 days #90 09/07/23 tabs sulfamethoxazole 800 1 tab PO BID #30 tabs 09/07/23 mg-trimethoprim 160 mg tablet Allergies Allergy/AdvReac Type Severity Reaction Status Date / Time codeine [CODEINE] Allergy Intermediate PASSES OUT Verified 09/07/23 11:49 Penicillins [PENICILLINS] Allergy Intermediate I-RASH Verified 09/07/23 11:49 phenytoin [From DILANTIN] Allergy Intermediate PASSES OUT Verified 09/07/23 11:49 PFS PFS Disclaimer: The information contained in this section may have been updated after the patient was seen, as this information can be updated by other users. Medical History (Updated 09/10/23 @ 20:40 by Munira Lee RN) Depression Diabetes mellitus Hypertension Myocardial infarction Surgical History (Updated 09/10/23 @ 20:40 by Munira Lee RN) H/O neck surgery History of appendectomy History of bunionectomy History of cholecystectomy History of colon resection History of hysterectomy Family History Mother Heart attack Cancer Social History (Updated 09/10/23 @ 20:40 by Munira Lee RN) Smoking Status: Never smoker alcohol intake: former substance use type: denies use current occupational status: retired Travel in the last 8 weeks: None household members: spouse housing: house marital status: caffeine: Yes ROS Obtained: Yes All systems reviewed
[2023-09-10 16:44] LABS: Basophils # 0.1 K/mm3 (0-0.2); Basophils % 0.4 % (0.1-2.0); Eosinophils # 0.1 K/mm3 (0.0-0.4); Eosinophils % 0.8 % (0.1-12.0); Hematocrit 49.1 % (37.0-47.0); Hemoglobin 16.3 g/dL (12.2-16.2); Lymphocytes # 2.8 K/mm3 (0.7-4.5); Lymphocytes % 18.2 % (10-50); Mean Corpuscular HGB Conc 33.2 g/dL (31.8-35.4); Mean Corpuscular Hemoglobin 33.3 pg (27.0-31.2); Mean Corpuscular Volume 100.3 fl (81-99); Mean Platelet Volume 9.3 fl (7.4-10.4); Monocytes # 1.2 K/mm3 (0.1-1.0); Neutrophils # 10.9 K/mm3 (1.8-7.8); Neutrophils % 72.5 % (37.0-80.0); Platelet Count 191 K/mm3 (142-424); Red Blood Count 4.89 M/mm3 (4.20-5.40); Red Cell Distribution Width 13.7 % (11.5-17.5)
[2023-09-10 16:45] VITALS: BP 166/36; PULSE 90; O2SAT 99
[2023-09-10 16:47] LABS: Chloride 97 mmol/L (98-107); Potassium 3.6 mmoL/L (3.5-5.1); Sodium 135 mmol/L (136-145)
[2023-09-10 16:49] LABS: Creatinine Clearance Estimated 11 mL/min (50-200); Estimated Glomerular Filt Rate 9 ml/min (>60); GFR (African American) 11 ML/MIN (>60)
[2023-09-10 16:50] LABS: Alanine Aminotransferase 77 U/L (12-78); Albumin Level 4.2 g/dl (3.5-5.0); Albumin/Globulin Ratio 1.4 (1.1-1.8); Alkaline Phosphatase 78 U/L (38-126); Aspartate Amino Transferase 134 U/L (14-36); Bilirubin,Total 0.4 mg/dl (0.2-1.3); Carbon Dioxide 16 mmol/L (22.0-30.0); Globulin 3.1 g/dL (1.3-3.2); Glucose 111 mg/dl (74-100); Lipase 238 U/L (23-300); Total Protein,Serum 7.3 g/dl (6.3-8.2)
[2023-09-10 16:58] LABS: Anion Gap 25.6 mEq/L (5-15)
[2023-09-10 16:59] LABS: Blood Urea Nitrogen 80 mg/dl (7-17); Lactic Acid 5.9 mmol/L (0.7-2.1)
[2023-09-10 17:15] LABS: MANUAL DIFFERENTIAL MANUAL DIFFERENTIAL (MANUAL DIFF)
[2023-09-10 17:39] LABS: Lymphocytes % 16 % (10-50); Monocytes % 3 % (2-9); Neutrophils % 81 % (42-76); Platelet Estimate Normal; RBC Morphology Normal; Total Cells Counted 100
--- NOTE | 2023-09-10 18:39 | PC.NURSE ---
pt refusing to be stuck for second set of blood cultures.
[2023-09-10 18:47] LABS: Coronavirus 19, PCR Not Detected (NotDetected); Influenza A, PCR Not Detected (NotDetected); Influenza B, PCR Not Detected (NotDetected)
[2023-09-10 18:47] LABS: Microscopic, Urine URINE MICROSCOPIC (MICROSCOPIC)
--- NOTE | 2023-09-10 18:57 | PC.NURSE ---
OBSERVATION ADMISSION TO TO 214 WITH DX OF FERMIN TO SERVICE OF THE HOSPITALIST.
[2023-09-10 19:14] LABS: Appearance,Urine CLEAR (Clear); Bilirubin,Urine Negative (Negative); Blood, Urine 3+ (Negative); Color,Urine YELLOW (Yellow); Glucose,Urine (UA) TRACE (Negative); Ketones,Urine TRACE (Negative); Leukocyte Esterase,Urine Negative (Negative); Nitrate,Urine Negative (Negative); PH,Urine 6.5 (5.0-8.5); Protein,Urine 2+ (Negative); Specific Gravity, Urine >= 1.030 (1.005-1.030); Urobilinogen,Urine 0.2 EU/dl (0.2)
[2023-09-10 19:24] VITALS: BP 135/70; PULSE 94; RESP 16; TEMP 36.6; O2SAT 96
--- NOTE | 2023-09-10 19:34 | PC.NURSE ---
pt arrived to floor via stretcher @192
--- NOTE | 2023-09-10 19:53 | EXP.HP ---
History of Present Illness *Admission Date: 09/10/23 *Reason for visit:: increased weakness *History of present illness: This is a 77yo F with PMHx of diabetes, non insulin user, hypertension, CAD without any intervention in the past who presents to the ED with complaints of increased and acute worsening weakness, with failure to thrive, associated with significant nausea, vomiting, decreased appetite, diffuse body aches. Symptoms acutely worsened over the last week Patient was reportedly diagnosed with a UTI and a yeast infection on Thursday. Patient is on cefdinir for the UTI. Symptoms are progressively worsened and the patient has become bedridden and thus patient was brought to the ED by family today. Patient has not been able to ambulate on her own over the past. Admitted for further work up and treatment. [facility] Disclaimer: The information contained in this section may have been updated after the patient was seen, as this information can be updated by other users. Medical History (Updated 09/11/23 @ 01:41 by Kenneth Pate APRN) Depression Diabetes mellitus Hypertension Myocardial infarction Surgical History (Updated 09/10/23 @ 20:40 by Munira Lee RN) H/O neck surgery History of appendectomy History of bunionectomy History of cholecystectomy History of colon resection History of hysterectomy Family History Mother Heart attack Cancer Social History (Updated 09/10/23 @ 20:40 by Munira Lee RN) Smoking Status: Never smoker alcohol intake: former substance use type: denies use current occupational status: retired Travel in the last 8 weeks: None household members: spouse housing: house marital status: caffeine: Yes Review of Systems Review of Systems Review of systems:: pertinent systems reviewed and negative unless documented below Meds Home Medications and Allergies Home Medications Medication Instructions Recorded Confirmed Type aspirin 81 mg chewable tablet 81 mg PO DAILY Blood thinner 08/16/21 09/10/23 History montelukast 10 mg tablet 10 mg PO DAILY #90 tabs 08/20/22 09/10/23 Rx pioglitazone 15 mg tablet 15 mg PO DAILY #90 tabs 08/20/22 09/10/23 Rx divalproex 250 mg tablet,delayed 250 mg PO BID seizures 90 days 06/08/23 09/10/23 Rx release #180 tabs clopidogrel 75 mg tablet 75 mg PO DAILY Blood thinner 90 07/20/23 09/10/23 Rx days #90 tabs metformin 1,000 mg tablet 1,000 mg PO BID Diabetes 30 days 07/23/23 09/10/23 Rx #60 tabs glipizide 10 mg tablet 10 mg PO DAILY Diabetes 90 days 08/03/23 09/10/23 Rx #90 tabs rosuvastatin 40 mg tablet 40 mg PO DAILY HLD 90 days #90 tabs 08/03/23 09/10/23 Rx ondansetron 4 mg disintegrating 4 mg PO Q8H PRN nausea and 08/08/23 09/10/23 Rx tablet vomiting 4 days #12 tabs triamterene 37.5 1 tab PO DAILY bp 90 days #90 tabs 08/31/23 09/10/23 Rx mg-hydrochlorothiazide 25 mg tablet fluconazole 150 mg tablet 150 mg PO Q3D yeast infection #7 09/07/23 09/10/23 Rx tabs linagliptin 5 mg tablet (Tradjenta) 5 mg PO DAILY Diabetes 90 days #90 09/07/23 09/10/23 Rx tabs sulfamethoxazole 800 1 tab PO BID #30 tabs 09/07/23 09/10/23 Rx mg-trimethoprim 160 mg tablet New Prescriptions to Start Prescriptions: Allergies Allergy/AdvReac Type Severity Reaction Status Date / Time codeine [CODEINE] Allergy Intermediate PASSES OUT Verified 09/07/23 11:49 Penicillins [PENICILLINS] Allergy Intermediate I-RASH Verified 09/07/23 11:49 phenytoin [From DILANTIN] Allergy Intermediate PASSES OUT Verified 09/07/23 11:49 Exam Data for Last 24 hours Vital signs and Labs for Last 24 Hours: Temp Pulse Resp BP Pulse Ox O2 Del Method 97.9 F 94 H 16 135/70 99 Room Air 09/10/23 19:24 09/10/23 19:24 09/10/23 19:24 09/10/23 19:24 09/10/23 16:45 09/10/23 19:24 Laboratory Results - last 24 hr 09/10/23 16:25: WBC 15.0 H, RBC 4.89, Hgb 16.3
[2023-09-10 20:00] VITALS: BP 161/83; PULSE 96; RESP 18; TEMP 36.6; O2SAT 97
[2023-09-10 20:35] LABS: Reflex Lactic Add Lactic Reflex
[2023-09-10 21:51] LABS: Lactic Acid Follow Up (RFLX 1) 5.5 mmol/L (0.7-2.1)
[2023-09-10 23:31] LABS: Reflex Lactic (2 hrs) Add Lactic Reflex
[2023-09-11 00:25] LABS: Lactic Acid Follow up (RFLX 2) 4.9 mmol/L (0.7-2.1)
[2023-09-11 04:00] VITALS: BP 146/80; PULSE 95; RESP 16; TEMP 36.6; O2SAT 99; BMI 27.3
[2023-09-11 05:11] LABS: POC Glucose,Bedside 67 (70-110)
--- NOTE | 2023-09-11 06:23 | PC.NURSE ---
patient has no rested tonight. was gave melatonin and vomited within a minute of intake. patient was gave a bed bath tonight and has decreased compliance with assisting in turning in bed. She has to be qued multiple times to help roll. Purewick in place r/t redness on bottom and inability to stand. patient states she lives at home with her , who had trouble getting her up steps the other day . FSBS at 0500 was 67 - pt refused any PO intake (pb, crackers, drinks).
--- NOTE | 2023-09-11 06:45 | PC.NURSE ---
pt just reported i have been having chest pain all night but hasn't reported until 0640. rates 10/10 and says she is soa. no visible distress noted. contacted hospitalist, ekg ordered and pending.
--- NOTE | 2023-09-11 06:49 | ECG_ITS ---
APPROVED REPORT Exam: Resting ECG HR:98 bpm ECG Measurements Heart Rate [address] 160 P 32 QRSd 92 QRS -63 QT 369 T 0 QTc 424 Conclusion SINUS RHYTHM PATTERN CONSISTENT WITH PULMONARY DISEASE LEFT ANTERIOR FASCICULAR BLOCK [QRS AXIS <= -45, QR IN I, RS IN II] NONSPECIFIC ST & T-WAVE ABNORMALITY ABNORMAL ECG UNCONFIRMED REPORT Electronically signed by : Matteo Dunaway MD 09/11/2023 16:29:34
[2023-09-11 06:54] LABS: Chloride 102 mmol/L (98-107)
[2023-09-11 06:55] LABS: Potassium 3.2 mmoL/L (3.5-5.1); Sodium 136 mmol/L (136-145)
[2023-09-11 06:58] LABS: Anion Gap 21.2 mEq/L (5-15); Calcium 8.2 mg/dl (8.4-10.2); Carbon Dioxide 16 mmol/L (22.0-30.0); Creatinine Clearance Estimated 12 mL/min (50-200); Estimated Glomerular Filt Rate 10 ml/min (>60); GFR (African American) 12 ML/MIN (>60)
[2023-09-11 07:00] LABS: Basophils % 0.1 % (0.1-2.0); Eosinophils # 0.1 K/mm3 (0.0-0.4); Eosinophils % 0.8 % (0.1-12.0); Hematocrit 43.8 % (37.0-47.0); Lymphocytes % 18.5 % (10-50); Mean Corpuscular HGB Conc 33.4 g/dL (31.8-35.4); Mean Corpuscular Hemoglobin 33.8 pg (27.0-31.2); Mean Corpuscular Volume 101.1 fl (81-99); Mean Platelet Volume 8.6 fl (7.4-10.4); Monocytes # 1.2 K/mm3 (0.1-1.0); Monocytes % 7.6 % (1.7-9.3); Neutrophils # 11.7 K/mm3 (1.8-7.8); Platelet Count 172 K/mm3 (142-424); Red Blood Count 4.33 M/mm3 (4.20-5.40); Red Cell Distribution Width 13.8 % (11.5-17.5); White Blood Count 16.1 K/mm3 (4.8-10.8)
[2023-09-11 07:08] LABS: Blood Urea Nitrogen 84 mg/dl (7-17); Glucose 45 mg/dl (74-100)
--- NOTE | 2023-09-11 07:09 | PC.NURSE ---
Addendum entered by Marco Samuels RN 09/11/23 07:26: FSBS recheck 149 Addendum entered by Marco Samuels RN 09/11/23 07:17: fsbs 44 - d50W administered per protocol and robbie ordonez Original Note: ATTEMPTED TO REPORT CRITICAL LABS TO HOSPITALIST, NO ANSWER
[2023-09-11 07:13] LABS: MANUAL DIFFERENTIAL MANUAL DIFFERENTIAL (MANUAL DIFF)
[2023-09-11 07:32] LABS: POC Glucose,Bedside 149 (70-110)
[2023-09-11 07:55] LABS: Anisocytosis 1+; Lymphocytes % 22 % (10-50); Macrocytosis 1+; Monocytes % 10 % (2-9); Neutrophils % 68 % (42-76); Total Cells Counted 100
[2023-09-11 07:56] LABS: Ovalocytes 1+; Platelet Estimate Normal
[2023-09-11 08:00] VITALS: BP 134/83; PULSE 98; RESP 17; TEMP 36.7; O2SAT 99
[2023-09-11 08:00] LABS: Hemoglobin 14.7 g/dL (12.2-16.2)
--- NOTE | 2023-09-11 10:32 | SW/DCPLANNER ---
Addendum entered by Yudi Knight 09/14/23 09:02: Sergey danielson/ [facility] stated that she can accept this patient once medically stable for discharge. Addendum entered by Yudi Knight 09/11/23 12:49: After discussion w/ patient and her the patient is agreeable w/ placement and prefers [facility]. Patient information will be faxed to Sergey danielson/ [facility] today. Discharge date is unknown at this time. Original Note: I spoke w/ patient regarding plans once medically stable for discharge. Patient stated that she resides at home w/ her and would prefer I speak w/ him regarding discharge plans. PT/OT evaluated patient and recommended SNF level of care. I called and spoke w/ patient's : he stated that he will be at [facility] in a couple hours and would prefer that myself, and patient speak together in patient's room regarding discharge plans. Discharge date is unknown at this time. I will follow up w/ patient and this morning in room.
--- NOTE | 2023-09-11 11:20 | HMH.PTEV ---
Physical Therapy Evaluation Rehab PT IP Evaluation Start: 09/11/23 00:37 Freq: ONCE Status: Active Protocol: Document 09/11/23 11:04 CJ (Rec: 09/11/23 11:19 CJ [id number]) Subjective/History History History Patient is a 77 year old female admitted to [facility] secondary to FERMIN/SIRS. Patient presented to [facility] ED with secondary to progressive generalized weakness and failure to thrive. Patient was previously ambulatory with RW, but has not been out of bed in over a week. Patient lives at home with her and requires assistance for all ADL's/IADL's . Subjective Subjective I just haven't been feeling well. I think the year is 1945. New diagnosis of cancer in past 12 No months? Rehab PT IP Eval Objective Appearance Patient Behavior Cooperative,Confused Patient Orientation Person,Place Difficulty following instructions mild Speech Pattern Clear,Appropriate Ambulation Patient Able to Ambulate No Balance Ability to Arise Unable Sitting Balance Leans or slides in chair Dynamic Sitting Balance Ability Poor Transfers Bed Transfer Ability Maximum x 2 (75% assist) ROM All Extremities PT ROM Status WFL MMT All Extremities PT MMT WFL Rehab PT IP prob,goals,plan Problems Date of Evaluation: 09/11/23 PT IP Problems Bed Mobility,Transfers,Gait, Balance,Self care,Safety Rehab Potential Rehab Potential Good Plan PT Intervention Plan Bed Mobility,Transfers,Gait, Balance,Self care,Safety, Therapeutic Exercise PT Plan Frequency BID Duration LOS Discharge Goals Bed Transfer Ability Moderate x 2 (50% assist) Sit to Stand Chair Transfer Ability Moderate x 2 (50% assist) Ambulation Assistive Device Rolling Walker Ambulation Distance (feet) 20 Discharge Plan PT Discharge Plan PT suggest that patient would benefit from placement at SNF in order to continue with rehab once found medically stable by MD. Ramos Complexity Eval Charge Codes
[2023-09-11 12:14] LABS: POC Glucose,Bedside 90 (70-110)
[2023-09-11 12:22] LABS: Lactic Acid 2.6 mmol/L (0.7-2.1)
--- NOTE | 2023-09-11 12:36 | HMH.SLDYSPHA ---
Speech & Language Evaluation Speech/Language Dysphagia Evaluation Start: 09/11/23 12:30 Freq: ONCE Status: Active Protocol: Document 09/11/23 12:30 FAISAL (Rec: 09/11/23 12:36 FAISAL [id number]) Dysphagia Assess/Goals/Plan Assessment Date of Evaluation: 09/11/23 Evaluation Type Initial Certification Assessment/Problems dysphagia per MD order Does Patient Qualify for Service No Qualify/Failure Comment Based on CSE, mastication/ manipulation of bolus and swallowing are WFL. No further skilled speech therapy services are warranted at this time. Recommendations PHYSICIAN CERTIFICATION: The specified therapy services are required, authorized, and reviewed every 30 days. Diet Recommendations Normal Liquid Type Recommendations Normal/Thin SL Swallow Guidelines Standard Aspiration Prec. Dysphagia Swallow Precautions/Strategies Sitting Upright (90 deg),Small Bites and Sips Place Food on Either side of Mouth Plan Pt/Guardian verbally ack understanding Yes of dx/prognosis/goals G -code Required No Education Instructions provided Discussed CSE results and recommendations with pt, nursing, and care management all of which expressed understanding. Pt/Caregiver able to recall information Able to recall/restate Reinforcement needed No Speech & Language HPI History Present Illness Description of Patient Problem PMHx significant for diabetes, hypertension, CAD without any intervention in the past who presents to the ED with complaints of failure to thrive. For the past several months, patient has reportedly had progressively worsening weakness. Symptoms have acutely worsened over the past week. Patient has been having significant nausea, vomiting, decreased appetite, diffuse body aches and generalized weakness. CXR reports no acute cardiopulmonary process. Pt has had limited PO intake during admission. Pt/Caregiver Concerns No reports of difficulty. Rehab Services Assessed Speech thera
[2023-09-11 14:10] VITALS: BMI 27.2
[2023-09-11 15:57] LABS: Reflex Lactic Add Lactic Reflex
[2023-09-11 16:00] VITALS: BP 151/62; PULSE 84; RESP 18; TEMP 36.2; O2SAT 99
[2023-09-11 16:42] LABS: Lactic Acid Follow Up (RFLX 1) 2.6 mmol/L (0.7-2.1)
[2023-09-11 17:17] LABS: POC Glucose,Bedside 69 (70-110)
--- NOTE | 2023-09-11 17:28 | EXP.PN ---
Subjective *Date: 09/11/23 *Time: 17:28 Interval history: patient was seen and evaluated at the bedside. denies chest pain, shortness of breath, nausea, vomiting, abdominal pain. Patient does not have any complaints at this time. feels better overall Exam Data for Last 24 hours Vital signs and Labs for Last 24 Hours: Temp Pulse Resp BP Pulse Ox O2 Del Method 97.1 F L 84 18 151/62 H 99 Room Air 09/11/23 16:00 09/11/23 16:00 09/11/23 16:00 09/11/23 16:00 09/11/23 16:00 09/11/23 17:00 Laboratory Results - last 24 hr 09/10/23 16:25: Total Counted 100, Neutrophils % (Manual) 81 H, Lymphocytes % (Manual) 16, Monocytes % (Manual) 3, Platelet Estimate Normal, RBC Morphology Normal 09/10/23 18:42: Urine Color Yellow, Urine Appearance Clear, Urine pH 6.5, Ur Specific [place] >= 1.030, Urine Protein 2+, Urine Glucose (UA) Trace, Urine Ketones Trace, Urine Blood 3+, Urine Nitrate Negative, Urine Bilirubin Negative, Urine Urobilinogen 0.2, Ur Leukocyte Esterase Negative, Urine RBC 3-5, Urine WBC None, Ur Squamous Epith Cells 5-10, Urine Bacteria None 09/10/23 18:43: SARS-CoV-2 (PCR) Not detected, Influenza A Untype (PCR) Not detected, Influenza Type B (PCR) Not detected 09/10/23 21:30: Lactate 5.5 H 09/10/23 23:40: Lactate 4.9 H 09/11/23 05:02: POC Glucose 67 L 09/11/23 06:17: WBC 16.1 H, RBC 4.33, Hgb 14.7, Hct 43.8, MCV 101.1 H, MCH 33.8 H, MCHC 33.4, RDW 13.8, Plt Count 172, MPV 8.6, Neut % (Auto) 73.0, Lymph % (Auto) 18.5, [place] % (Auto) 7.6, Eos % (Auto) 0.8, Baso % (Auto) 0.1, Neut # (Auto) 11.7 H, Lymph # (Auto) 3.0, [place] # (Auto) 1.2 H, Eos # (Auto) 0.1, Baso # (Auto) 0.0, Total Counted 100, Neutrophils % (Manual) 68, Lymphocytes % (Manual) 22, Monocytes % (Manual) 10 H, Platelet Estimate Normal, Anisocytosis 1+, Macrocytosis 1+, Ovalocytes 1+, Sodium 136, Potassium 3.2 L, Chloride 102, Carbon Dioxide 16 L, Anion Gap 21.2 H, BUN 84 H, Creatinine 4.30 H, Estimated Creat Clear 12, Estimated GFR 10 L*, Est GFR ( Amer) 12 L*, Glucose 45 L D, Calcium 8.2 L 09/11/23 07:25: POC Glucose 149 H 09/11/23 11:51: POC Glucose 90 09/11/23 11:53: Lactate 2.6 H 09/11/23 16:20: Lactate 2.6 H 09/11/23 17:08: POC Glucose 69 L I & O for Last 24 hours: Intake & Output 09/08/23 09/09/23 09/10/23 09/11/23 23:59 23:59 23:59 23:59 Intake Total 1234 / 1234 Output Total 0 / 0 0 / 0 Balance 1234 / 1234 Weight 68.492 kg 69.8 kg Constitutional Constitutional: no acute distress *Routine HEENT Exam Head: Present normocephalic Eye: Present EOMI and PERRL ENT: Present mucous membranes moist *Routine Neck Exam Neck: Present supple; Absent lymphadenopathy *Routine Respiratory Exam Respiratory: Present CTA bilaterally *Routine Cardiovascular Exam Cardiovascular: Present RRR *Routine Abdominal Exam Abdominal: Present soft and normoactive bowel sounds; Absent tenderness *Routine Extremities Exam Extremities: Absent cyanosis, clubbing or edema *Routine Skin Exam Skin: Present warm; Absent rash *Routine Neurological Exam Neurological: Present alert and oriented X3 Assessment and Plan *Assessment and plan (1) FERMIN (acute kidney injury): Status: Acute Category: Medical Code(s): N17.9 - Acute kidney failure, unspecified (2) Lactic acidosis: Status: Acute Category: Medical Code(s): E87.20 - Acidosis, unspecified (3) Leukocytosis: Status: Acute Qualifiers: Leukocytosis type: unspecified Qualified Code(s): D72.829 - Elevated white blood cell count, unspecified Category: Medical Code(s): D72.829 - Elevated white blood cell count, unspecified (4) Hypertension: Problem Comment: Currently normotensive Status: Chronic Qualifiers: Hypertension type: unspecified Qualified Code(s): I10 - Essential (primary) hypertension Category: Medical Code(s): I10 - Essential (primary) hypertension (5) Diabetes mellitus: Prob
[2023-09-11 18:26] LABS: Reflex Lactic (2 hrs) Add Lactic Reflex
[2023-09-11 18:43] LABS: POC Glucose,Bedside 72 (70-110)
[2023-09-11 19:01] LABS: Lactic Acid Follow up (RFLX 2) 3.3 mmol/L (0.7-2.1)
[2023-09-11 20:00] VITALS: BP 135/64; PULSE 83; RESP 17; TEMP 36.9; O2SAT 98
[2023-09-11 20:04] LABS: POC Glucose,Bedside 131 (70-110)
[2023-09-12 04:00] VITALS: BP 138/63; PULSE 71; RESP 17; TEMP 36.5; O2SAT 99; BMI 27.4
[2023-09-12 06:23] LABS: POC Glucose,Bedside 102 (70-110)
[2023-09-12 07:53] LABS: Chloride 104 mmol/L (98-107); Sodium 136 mmol/L (136-145)
[2023-09-12 07:55] LABS: Basophils % 0.2 % (0.1-2.0); Eosinophils # 0.1 K/mm3 (0.0-0.4); Eosinophils % 1.2 % (0.1-12.0); Hematocrit 42.1 % (37.0-47.0); Hemoglobin 14.9 g/dL (12.2-16.2); Lymphocytes % 17.1 % (10-50); Mean Corpuscular HGB Conc 35.5 g/dL (31.8-35.4); Mean Corpuscular Hemoglobin 35.4 pg (27.0-31.2); Mean Corpuscular Volume 99.8 fl (81-99); Mean Platelet Volume 9.3 fl (7.4-10.4); Monocytes # 1.2 K/mm3 (0.1-1.0); Monocytes % 10.7 % (1.7-9.3); Neutrophils # 8.2 K/mm3 (1.8-7.8); Neutrophils % 70.7 % (37.0-80.0); Platelet Count 142 K/mm3 (142-424); Red Blood Count 4.22 M/mm3 (4.20-5.40); Red Cell Distribution Width 13.8 % (11.5-17.5); White Blood Count 11.5 K/mm3 (4.8-10.8)
[2023-09-12 07:56] LABS: Anion Gap 13.9 mEq/L (5-15); Calcium 8.1 mg/dl (8.4-10.2); Carbon Dioxide 21 mmol/L (22.0-30.0); Creatinine Clearance Estimated 13 mL/min (50-200); Estimated Glomerular Filt Rate 11 ml/min (>60); GFR (African American) 13 ML/MIN (>60); Glucose 117 mg/dl (74-100)
[2023-09-12 08:00] VITALS: BP 139/62; PULSE 85; RESP 16; TEMP 36.4; O2SAT 96
[2023-09-12 08:04] LABS: Blood Urea Nitrogen 83 mg/dl (7-17); Potassium 2.9 mmoL/L (3.5-5.1)
--- NOTE | 2023-09-12 08:10 | PC.NURSE ---
attempted to call hospitalist to report critical labs. awaiting a call back
[2023-09-12 08:55] LABS: POC Glucose,Bedside 113 (70-110)
--- NOTE | 2023-09-12 09:03 | PC.NURSE ---
pt refused all po medications this am. States she does not want them. she is alert and oriented this am. Pt states she is nonambulatory and takes care of her at home. I checked her glucose. 113
[2023-09-12 11:23] LABS: POC Glucose,Bedside 90 (70-110)
--- NOTE | 2023-09-12 13:17 | PC.NURSE ---
pt max 2 assist to get up to chair with gait belt. She tolerated well. is @ bedside
[2023-09-12 16:00] VITALS: BP 151/65; PULSE 91; RESP 20; TEMP 36.4; O2SAT 100
--- NOTE | 2023-09-12 16:22 | EXP.PN ---
Subjective *Date: 09/12/23 *Time: 16:22 Interval history: patient was seen and evaluated at the bedside. denies chest pain, shortness of breath, nausea, vomiting, abdominal pain. Patient does not have any complaints at this time. feels better overall Exam Data for Last 24 hours Vital signs and Labs for Last 24 Hours: Temp Pulse Resp BP Pulse Ox O2 Del Method 97.6 F 91 H 20 151/65 H 100 Room Air 09/12/23 16:00 09/12/23 16:00 09/12/23 16:00 09/12/23 16:00 09/12/23 16:00 09/12/23 16:00 Laboratory Results - last 24 hr 09/11/23 16:20: Lactate 2.6 H 09/11/23 17:08: POC Glucose 69 L 09/11/23 18:11: POC Glucose 72 09/11/23 18:40: Lactate 3.3 H 09/11/23 19:57: POC Glucose 131 H 09/12/23 06:12: POC Glucose 102 09/12/23 07:35: WBC 11.5 H D, RBC 4.22, Hgb 14.9, Hct 42.1, MCV 99.8 H, MCH 35.4 H, MCHC 35.5 H, RDW 13.8, Plt Count 142, MPV 9.3, Neut % (Auto) 70.7, Lymph % (Auto) 17.1, [place] % (Auto) 10.7 H, Eos % (Auto) 1.2, Baso % (Auto) 0.2, Neut # (Auto) 8.2 H, Lymph # (Auto) 2.0, [place] # (Auto) 1.2 H, Eos # (Auto) 0.1, Baso # (Auto) 0.0, Sodium 136, Potassium 2.9 L*, Chloride 104, Carbon Dioxide 21 L, Anion Gap 13.9, BUN 83 H, Creatinine 4.10 H, Estimated Creat Clear 13, Estimated GFR 11 L*, Est GFR ( Amer) 13 L*, Glucose 117 H, Calcium 8.1 L 09/12/23 08:47: POC Glucose 113 H 09/12/23 11:10: POC Glucose 90 I & O for Last 24 hours: Intake & Output 09/09/23 09/10/23 09/11/2302/23 23:59 23:59 23:59 23:59 Intake Total 2298 / 2298 1610 / 1610 Output Total 0 / 0 600 / 600 600 / 600 Balance 0 30 1698 / 1698 1010 / 1010 Weight 68.492 kg 69.8 kg 70.23 kg Constitutional Constitutional: no acute distress *Routine HEENT Exam Head: Present normocephalic Eye: Present EOMI and PERRL ENT: Present mucous membranes moist *Routine Neck Exam Neck: Present supple; Absent lymphadenopathy *Routine Respiratory Exam Respiratory: Present CTA bilaterally *Routine Cardiovascular Exam Cardiovascular: Present RRR *Routine Abdominal Exam Abdominal: Present soft and normoactive bowel sounds; Absent tenderness *Routine Extremities Exam Extremities: Absent cyanosis, clubbing or edema *Routine Skin Exam Skin: Present warm; Absent rash *Routine Neurological Exam Neurological: Present alert and oriented X3 Assessment and Plan *Assessment and plan (1) FERMIN (acute kidney injury): Status: Acute Category: Medical Code(s): N17.9 - Acute kidney failure, unspecified (2) Lactic acidosis: Status: Acute Category: Medical Code(s): E87.20 - Acidosis, unspecified (3) Leukocytosis: Status: Acute Qualifiers: Leukocytosis type: unspecified Qualified Code(s): D72.829 - Elevated white blood cell count, unspecified Category: Medical Code(s): D72.829 - Elevated white blood cell count, unspecified (4) Hypertension: Problem Comment: Currently normotensive Status: Chronic Qualifiers: Hypertension type: unspecified Qualified Code(s): I10 - Essential (primary) hypertension Category: Medical Code(s): I10 - Essential (primary) hypertension (5) Diabetes mellitus: Problem Comment: Avoid beta-blockers for tremor in patients with diabetes mellitus. Status: Chronic Qualifiers: Diabetes mellitus type: type 2 Diabetes mellitus ocean [employer] intermediary insulin use: without [place] [facility] use Diabetes mellitus complication status: with other specified complication Qualified Code(s): E11.69 - Type 2 diabetes mellitus with other specified complication Category: Medical Code(s): E11.9 - Type 2 diabetes mellitus without complications (6) Coronary artery disease: Status: Chronic Qualifiers: Coronary Disease-Associated Artery/Lesion type: unspecified vessel or lesion type [place] vs. transplanted heart: [place] heart Associated angina: without angina Qualified Code(s): I25.10 - Atherosclerotic heart dis
[2023-09-12 17:12] LABS: POC Glucose,Bedside 74 (70-110)
--- NOTE | 2023-09-12 18:28 | PC.NURSE ---
@ bedside. I spoke with him regarding pt refusing medications. she was able to eat 5-6 bites of soup. otherwise she has refused po intake
[2023-09-12 20:00] VITALS: BP 108/83; PULSE 98; RESP 18; TEMP 36.6; O2SAT 99
--- NOTE | 2023-09-12 22:09 | PC.NURSE ---
Pt refusing medications, medication education given to Pt, Pt states that she can not swallow the meds.
[2023-09-12 22:41] LABS: POC Glucose,Bedside 72 (70-110)
--- NOTE | 2023-09-13 00:52 | PC.NURSE ---
pt has refused to turn all shift but complains shes uncomfortable nurse notified
[2023-09-13 04:00] VITALS: BP 146/68; PULSE 78; RESP 18; TEMP 36.6; O2SAT 97; BMI 27.4
[2023-09-13 05:07] LABS: POC Glucose,Bedside 63 (70-110)
[2023-09-13 05:59] LABS: POC Glucose,Bedside 66 (70-110)
--- NOTE | 2023-09-13 06:03 | PC.NURSE ---
Pt is alert and oriented x4. Pt continues to refuse PO meds and care despite multiple attempts. Pt's IV to right forearm infiltrated and staff was not able to replace after ultrasound guided attempt. Pt stated staff was only allowed to try a ultrasound guided attempt once. Pt glucose was 63 this am and pt was given a sugared snack to raise blood glucose, Pt's glucose was 66 30 minutes later after eating 1/2 of her pudding, gave pt a pepsi. Pt has not reported any pain this shit, and denies needs.
[2023-09-13 07:53] VITALS: PULSE 115; RESP 20; TEMP 37.5; O2SAT 97
[2023-09-13 08:02] LABS: Basophils % 0.4 % (0.1-2.0); Eosinophils % 0.4 % (0.1-12.0); Hematocrit 40.7 % (37.0-47.0); Hemoglobin 14.2 g/dL (12.2-16.2); Lymphocytes # 1.9 K/mm3 (0.7-4.5); Lymphocytes % 16.5 % (10-50); Mean Corpuscular HGB Conc 34.8 g/dL (31.8-35.4); Mean Corpuscular Hemoglobin 34.3 pg (27.0-31.2); Mean Corpuscular Volume 98.4 fl (81-99); Mean Platelet Volume 10.2 fl (7.4-10.4); Monocytes # 2.5 K/mm3 (0.1-1.0); Monocytes % 21.9 % (1.7-9.3); Neutrophils % 60.9 % (37.0-80.0); Platelet Count 104 K/mm3 (142-424); Red Blood Count 4.13 M/mm3 (4.20-5.40); Red Cell Distribution Width 14.1 % (11.5-17.5); White Blood Count 11.6 K/mm3 (4.8-10.8)
[2023-09-13 08:10] LABS: MANUAL DIFFERENTIAL MANUAL DIFFERENTIAL (MANUAL DIFF)
[2023-09-13 08:39] LABS: Chloride 109 mmol/L (98-107); Potassium 3.3 mmoL/L (3.5-5.1); Sodium 135 mmol/L (136-145)
[2023-09-13 08:42] LABS: Anion Gap 13.3 mEq/L (5-15); Blood Urea Nitrogen 78 mg/dl (7-17); Carbon Dioxide 16 mmol/L (22.0-30.0); Creatinine Clearance Estimated 13 mL/min (50-200); Estimated Glomerular Filt Rate 11 ml/min (>60); GFR (African American) 13 ML/MIN (>60); Glucose 118 mg/dl (74-100)
--- NOTE | 2023-09-13 08:44 | PC.NURSE ---
spoke with MD regarding critical lab. has improved from yesterday
[2023-09-13 09:20] LABS: Lymphocytes % 15 % (10-50); Monocytes % 16 % (2-9); Neutrophils % 69 % (42-76); Total Cells Counted 100
[2023-09-13 09:21] LABS: Platelet Estimate Slight Decrease
[2023-09-13 09:23] LABS: RBC Morphology Normal
--- NOTE | 2023-09-13 11:35 | PC.NURSE ---
PICC/Midline insertion attempted x2. unsuccessful insertions r/t unable to access veins r/t edema and adipose tissue in upper arms. pt refused any further attempts. primary RN notified [id number]
[2023-09-13 11:43] LABS: POC Glucose,Bedside 107 (70-110)
--- NOTE | 2023-09-13 12:20 | XR_ITS ---
PROCEDURE INFORMATION: Exam: XR Chest Exam date and time: 09/13/2023 12:48 PM Age: 77 years old Clinical indication: Device placement; Patient HX: Evaluate central line placement. TECHNIQUE: Imaging protocol: Radiologic exam of the chest. Views: 1 view. COMPARISON: CR XR CHEST PORTABLE 09/10/2023 3:58 PM FINDINGS: Tubes, catheters and devices: There is a left-sided central line that has been placed via left subclavian approach whose tip terminates withinr the SVC approximately 4 cm above the cavoatrial junction. Lungs: Minor atelectatic changes left lung base otherwise lung brooke are clear. Pleural spaces: Unremarkable. No pleural effusion. No pneumothorax. Heart/Mediastinum: Unremarkable. No cardiomegaly. Bones/joints: Unremarkable for age. IMPRESSION: Interval placement of left-sided central line in adequate position.
--- NOTE | 2023-09-13 12:47 | EXP.SURG.CON ---
History of Present Illness *Admission Date: 09/10/23 *Reason for visit:: Inadequate venous access *History of present illness: Forwarded from admission H&P: This is a 77yo F with PMHx of diabetes, non insulin user, hypertension, CAD without any intervention in the past who presents to the ED with complaints of increased and acute worsening weakness, with failure to thrive, associated with significant nausea, vomiting, decreased appetite, diffuse body aches. Symptoms acutely worsened over the last week Patient was reportedly diagnosed with a UTI and a yeast infection on Thursday. Patient is on cefdinir for the UTI. Symptoms are progressively worsened and the patient has become bedridden and thus patient was brought to the ED by family today. Patient has not been able to ambulate on her own over the past. Admitted for further work up and treatment. [facility] Disclaimer: The information contained in this section may have been updated after the patient was seen, as this information can be updated by other users. Medical History (Updated 09/13/23 @ 12:48 by Pascual Pitt MD) Depression Diabetes mellitus Hypertension Myocardial infarction Surgical History (Updated 09/10/23 @ 20:40 by Munira Lee RN) H/O neck surgery History of appendectomy History of bunionectomy History of cholecystectomy History of colon resection History of hysterectomy Family History Mother Heart attack Cancer Social History (Updated 09/10/23 @ 20:40 by Munira Lee RN) Smoking Status: Never smoker alcohol intake: former substance use type: denies use current occupational status: retired Travel in the last 8 weeks: None household members: spouse housing: house marital status: caffeine: Yes Meds Home Medications and Allergies Home Medications Medication Instructions Recorded Confirmed Type aspirin 81 mg chewable tablet 81 mg PO DAILY Heart Health 08/16/21 09/11/23 History divalproex 250 mg tablet,delayed 250 mg PO BID seizures 90 days 06/08/23 09/11/23 Rx release #180 tabs metformin 1,000 mg tablet 1,000 mg PO BID Diabetes 30 days 07/23/23 09/11/23 Rx #60 tabs glipizide 10 mg tablet 10 mg PO DAILY Diabetes 90 days 08/03/23 09/11/23 Rx #90 tabs fluconazole 150 mg tablet 150 mg PO Q3D yeast infection #7 09/07/23 09/11/23 Rx tabs linagliptin 5 mg tablet (Tradjenta) 5 mg PO DAILY Diabetes 90 days #90 09/07/23 09/11/23 Rx tabs clopidogrel 75 mg tablet 75 mg PO DAILY Platelet Inhibitor 09/11/23 09/11/23 History ondansetron 4 mg disintegrating 4 mg PO Q8HP PRN nausea and 09/11/23 09/11/23 History tablet vomiting pioglitazone 15 mg tablet 15 mg PO DAILY Diabetes 09/11/23 09/11/23 History rosuvastatin 40 mg tablet 40 mg PO HS Cholesterol 09/11/23 09/11/23 History sulfamethoxazole 800 1 tab PO BID Antibiotic 09/11/23 09/11/23 History mg-trimethoprim 160 mg tablet triamterene 37.5 1 tab PO DAILY Hypertension 09/11/23 09/11/23 History mg-hydrochlorothiazide 25 mg tablet New Prescriptions to Start Prescriptions: Allergies Allergy/AdvReac Type Severity Reaction Status Date / Time codeine [CODEINE] Allergy Intermediate PASSES OUT Verified 09/07/23 11:49 Penicillins [PENICILLINS] Allergy Intermediate I-RASH Verified 09/07/23 11:49 phenytoin [From DILANTIN] Allergy Intermediate PASSES OUT Verified 09/07/23 11:49 Exam (Inpt) Vital signs and Labs for Last 24 Hours: Temp Pulse Resp BP Pulse Ox O2 Del Method 99.5 F 115 H 20 146/68 H 97 Room Air 09/13/23 07:53 09/13/23 07:53 09/13/23 07:53 09/13/23 04:00 09/13/23 07:53 09/13/23 07:53 Laboratory Results - last 24 hr 09/12/23 16:37: POC Glucose 74 09/12/23 22:29: POC Glucose 72 09/13/23 04:59: POC Glucose 63 L 09/13/23 05:52: POC Glucose 66 L 09/13/23 07:35: WBC 11.6 H, RBC 4.13 L, Hgb 14.2, Hct 40.7, MCV 98.4, MCH 34.3 H, MCHC 34.8, RDW 14.1, Plt Cou
--- NOTE | 2023-09-13 12:49 | P.OP_ITS ---
Date of procedure: 09/13/23 Pre-op Diagnosis:: Inadequate venous access Post-op Diagnosis:: Same Procedure performed:: 7 Congolese triple-lumen catheter placement (left subclavian vein access) Surgeon:: Pascual Pitt MD Anesthesia: local Estimated blood loss (mL): 5 Operative findings:: Port flushed without difficulty Operative note:: After informed consent was obtained the patient was maintained in the supine position. Her left neck and chest was prepped and draped in a sterile fashion and she was transferred to a modified Trendelenburg position. After infiltration local anesthetic a large bore needle was utilized to access the left subclavian vein. Utilizing a modified Seldinger technique a 7 Congolese triple-lumen catheter was placed in position and anchored at 17 cm. All ports flushed without difficulty. The port was secured with interrupted silk suture. Dressings were applied. Chest x-ray pending. Condition: other (Unchanged) Disposition: no change Specimens:: None Complications:: No immediate. Chest x-ray pending.
--- NOTE | 2023-09-13 15:49 | EXP.PN ---
Subjective *Date: 09/13/23 *Time: 16:20 Interval history: patient was seen and evaluated at the bedside. denies chest pain, shortness of breath, nausea, vomiting, abdominal pain. Patient does not have any complaints at this time. feels better overall Exam Data for Last 24 hours Vital signs and Labs for Last 24 Hours: Temp Pulse Resp BP Pulse Ox O2 Del Method 99.5 F 115 H 20 146/68 H 97 Room Air 09/13/23 07:53 09/13/23 07:53 09/13/23 07:53 09/13/23 04:00 09/13/23 07:53 09/13/23 13:00 Laboratory Results - last 24 hr 09/12/23 16:37: POC Glucose 74 09/12/23 22:29: POC Glucose 72 09/13/23 04:59: POC Glucose 63 L 09/13/23 05:52: POC Glucose 66 L 09/13/23 07:35: WBC 11.6 H, RBC 4.13 L, Hgb 14.2, Hct 40.7, MCV 98.4, MCH 34.3 H, MCHC 34.8, RDW 14.1, Plt Count 104 L D, MPV 10.2, Neut % (Auto) 60.9, Lymph % (Auto) 16.5, Moffat % (Auto) 21.9 H D, Eos % (Auto) 0.4, Baso % (Auto) 0.4, Neut # (Auto) 7.0, Lymph # (Auto) 1.9, Moffat # (Auto) 2.5 H, Eos # (Auto) 0.0, Baso # (Auto) 0.0, Total Counted 100, Neutrophils % (Manual) 69, Lymphocytes % (Manual) 15, Monocytes % (Manual) 16 H, Platelet Estimate Slight decrease, RBC Morphology Normal, Sodium 135 L, Potassium 3.3 L, Chloride 109 H, Carbon Dioxide 16 L, Anion Gap 13.3, BUN 78 H, Creatinine 4.00 H, Estimated Creat Clear 13, Estimated GFR 11 L*, Est GFR ( Amer) 13 L*, Glucose 118 H, Calcium 8.0 L 09/13/23 11:35: POC Glucose 107 I & O for Last 24 hours: Intake & Output 09/10/23 09/11/23 09/12/23 09/13/23 23:59 23:59 23:59 23:59 Intake Total 2298 / 2298 1710 / 1830 490 / 490 Output Total 0 / 0 600 / 600 950 / 950 1475 / 1475 Balance 1698 / 1698 760 / 880 -985 / -985 Weight 68.492 kg 69.8 kg 70.23 kg 70.36 kg Microbiology Reports for the Last 24 Hours: Microbiology 09/10/23 18:42 Urine,Clean Catch Urine Culture - Final Constitutional Constitutional: no acute distress *Routine HEENT Exam Head: Present normocephalic Eye: Present EOMI and PERRL ENT: Present mucous membranes moist *Routine Neck Exam Neck: Present supple; Absent lymphadenopathy *Routine Respiratory Exam Respiratory: Present CTA bilaterally *Routine Cardiovascular Exam Cardiovascular: Present RRR *Routine Abdominal Exam Abdominal: Present soft and normoactive bowel sounds; Absent tenderness *Routine Extremities Exam Extremities: Absent cyanosis, clubbing or edema *Routine Skin Exam Skin: Present warm; Absent rash *Routine Neurological Exam Neurological: Present alert and oriented X3 Assessment and Plan *Assessment and plan (1) FERMIN (acute kidney injury): Status: Acute Category: Medical Code(s): N17.9 - Acute kidney failure, unspecified (2) Lactic acidosis: Status: Acute Category: Medical Code(s): E87.20 - Acidosis, unspecified (3) Leukocytosis: Status: Acute Qualifiers: Leukocytosis type: unspecified Qualified Code(s): D72.829 - Elevated white blood cell count, unspecified Category: Medical Code(s): D72.829 - Elevated white blood cell count, unspecified (4) Hypertension: Problem Comment: Currently normotensive Status: Chronic Qualifiers: Hypertension type: unspecified Qualified Code(s): I10 - Essential (primary) hypertension Category: Medical Code(s): I10 - Essential (primary) hypertension (5) Diabetes mellitus: Problem Comment: Avoid beta-blockers for tremor in patients with diabetes mellitus. Status: Chronic Qualifiers: Diabetes mellitus complication status: with other specified complication Diabetes mellitus nursing home insulin use: without assistant terminal manager use Diabetes mellitus type: type 2 Qualified Code(s): E11.69 - Type 2 diabetes mellitus with other specified complication Category: Medical Code(s): E11.9 - Type 2 diabetes mellitus without complications (6) Coronary artery disease: Status: Chronic Qualifi
[2023-09-13 16:00] VITALS: BP 136/106; PULSE 91; RESP 20; TEMP 36.9; O2SAT 92
[2023-09-13 18:23] LABS: POC Glucose,Bedside 129 (70-110)
[2023-09-13 20:00] VITALS: BP 163/79; PULSE 90; RESP 18; TEMP 37.1; O2SAT 99
--- NOTE | 2023-09-13 20:01 | PC.NURSE ---
patient refused all PO 2100 medications. educated patient on the importance of taking her scheduled medications, patient verbalized understanding. was at bedside during this time.
[2023-09-13 22:38] LABS: POC Glucose,Bedside 162 (70-110)
[2023-09-14 04:00] VITALS: BP 130/64; PULSE 89; RESP 18; TEMP 36.6; O2SAT 97; BMI 27.6
--- NOTE | 2023-09-14 05:39 | PC.NURSE ---
turned q2h t/o night. triple lumen central line patent with d5LR infusing. glucose has been WNL t/o shift. pure wick removed at 1900 r/t redness/irritation on labia.
[2023-09-14 06:01] LABS: POC Glucose,Bedside 145 (70-110)
[2023-09-14 07:15] LABS: Basophils % 0.1 % (0.1-2.0); Eosinophils # 0.1 K/mm3 (0.0-0.4); Eosinophils % 1.2 % (0.1-12.0); Hematocrit 37.9 % (37.0-47.0); Lymphocytes # 1.5 K/mm3 (0.7-4.5); Lymphocytes % 15.1 % (10-50); Mean Corpuscular HGB Conc 33.5 g/dL (31.8-35.4); Mean Corpuscular Hemoglobin 33.9 pg (27.0-31.2); Mean Corpuscular Volume 101.3 fl (81-99); Mean Platelet Volume 9.4 fl (7.4-10.4); Monocytes # 1.1 K/mm3 (0.1-1.0); Monocytes % 10.5 % (1.7-9.3); Neutrophils # 7.4 K/mm3 (1.8-7.8); Platelet Count 106 K/mm3 (142-424); Red Blood Count 3.74 M/mm3 (4.20-5.40); Red Cell Distribution Width 14.2 % (11.5-17.5); White Blood Count 10.2 K/mm3 (4.8-10.8)
[2023-09-14 07:41] LABS: Hemoglobin 12.7 g/dL (12.2-16.2)
[2023-09-14 07:44] LABS: Chloride 109 mmol/L (98-107); Sodium 136 mmol/L (136-145)
[2023-09-14 07:46] LABS: Alanine Aminotransferase 56 U/L (12-78); Aspartate Amino Transferase 78 U/L (14-36); Blood Urea Nitrogen 74 mg/dl (7-17); Creatinine Clearance Estimated 13 mL/min (50-200); Estimated Glomerular Filt Rate 11 ml/min (>60); GFR (African American) 13 ML/MIN (>60)
[2023-09-14 07:47] LABS: Albumin Level 2.5 g/dl (3.5-5.0); Albumin/Globulin Ratio 0.9 (1.1-1.8); Alkaline Phosphatase 22 U/L (38-126); Bilirubin,Total 0.5 mg/dl (0.2-1.3); Calcium 8.1 mg/dl (8.4-10.2); Carbon Dioxide 21 mmol/L (22.0-30.0); Globulin 2.8 g/dL (1.3-3.2); Glucose 131 mg/dl (74-100); Magnesium 1.5 mg/dl (1.6-2.3); Total Protein,Serum 5.3 g/dl (6.3-8.2)
[2023-09-14 08:00] VITALS: BP 170/71; PULSE 98; RESP 17; TEMP 36.7; O2SAT 92
[2023-09-14 08:07] LABS: Creatine Kinase 1169 U/L (30-135)
--- NOTE | 2023-09-14 09:53 | PC.NURSE ---
RESP CARE NOTE: Pt attempted NIF testing, her results were reported to Dr Tinsley as -19. Will continue to monitor patient accordingly.
--- NOTE | 2023-09-14 10:33 | HMH.OTEV ---
OT Inpatient Evaluation Rehab OT IP Evaluation Start: 09/14/23 07:49 Freq: ONCE Status: Active Protocol: Document 09/14/23 10:26 CYN (Rec: 09/14/23 10:33 CYN [id number]) Rehab OT IP Assessment Subjective History This is a 77yo F with PMHx of diabetes, non insulin user, hypertension, CAD without any intervention in the past who presents to the ED with complaints of increased and acute worsening weakness, with failure to thrive, associated with significant nausea, vomiting, decreased appetite, diffuse body aches. Symptoms acutely worsened over the last week Patient was reportedly diagnosed with a UTI and a yeast infection on Thursday. Patient is on cefdinir for the UTI. Symptoms are progressively worsened and the patient has become bedridden and thus patient was brought to the ED by family today. Patient has not been able to ambulate on her own over the past. Admitted for further work up and treatment. Patient lives at home with . stated that patient was able to complete transfers and ambulation tasks with usage of RW ~1-2 weeks ago. assist with ADLs as needed. Subjective I can try. Patient is dependent with all bed mobility, ADL tasks and fx 'l mobility at this time. Patient reported having high pain tolerance this morning. Objective Patient Orientation Person,Place,Name Right Upper Extremity Gross ROM WFL Left Upper Extremity Gross ROM WFL Bed Mobility bed mobility - supine/sit Assist Level Total/Dependent (100%) Rehab OT IP prob,goals,plan Problems Date of Evaluation: 09/14/23 OT IP Problems Bed Mobility,Transfers,Balance ,Self care,Safety Rehab Potential Rehab Potential
[2023-09-14 13:09] LABS: POC Glucose,Bedside 215 (70-110)
[2023-09-14 15:46] VITALS: BP 134/61; PULSE 99; RESP 16; TEMP 36.9; O2SAT 97
[2023-09-14 17:30] LABS: POC Glucose,Bedside 281 (70-110)
[2023-09-14 17:32] LABS: Chloride 105 mmol/L (98-107)
[2023-09-14 17:33] LABS: Sodium 134 mmol/L (136-145)
[2023-09-14 17:36] LABS: Anion Gap 11.5 mEq/L (5-15); Blood Urea Nitrogen 67 mg/dl (7-17); Calcium 8.3 mg/dl (8.4-10.2); Carbon Dioxide 20 mmol/L (22.0-30.0); Creatinine Clearance Estimated 13 mL/min (50-200); Estimated Glomerular Filt Rate 11 ml/min (>60); GFR (African American) 13 ML/MIN (>60); Glucose 288 mg/dl (74-100); Magnesium 2.3 mg/dl (1.6-2.3)
--- NOTE | 2023-09-14 17:43 | EXP.DC.SUM ---
General Admission date:: 09/10/23 Discharge date: 09/14/23 HPI HPI HPI: This is a 77yo F with PMHx of diabetes, non insulin user, hypertension, CAD without any intervention in the past who presents to the ED with complaints of increased and acute worsening weakness, with failure to thrive, associated with significant nausea, vomiting, decreased appetite, diffuse body aches. Symptoms acutely worsened over the last week Patient was reportedly diagnosed with a UTI and a yeast infection on Thursday. Patient is on cefdinir for the UTI. Symptoms are progressively worsened and the patient has become bedridden and thus patient was brought to the ED by family today. Patient has not been able to ambulate on her own over the past few days. Admitted for further work up and treatment. Hospital Course Hospital Course Hospital Course: 77yo F with PMHx of diabetes, non insulin user, hypertension, CAD without any intervention in the past who presents to the ED with complaints of increased and acute worsening weakness, with failure to thrive, associated with significant nausea, vomiting, decreased appetite, diffuse body aches. ER work up showed significant acute kidney injury with markedly elevated creatinine and diminished GFR. also there is a moderate leukocytosis, lactate acidosis and mild hyponatremia. CXR and CT of abdomen are negative for acute process. Patient was visibly ill-appearing. Admitted to medicine for further management. Has unfortunately had poor response to treatment and has only had worsening progression of her weakness. After reevaluation of her case, further review shows concern for possible neurologic condition such as an ascending paralysis. At this time it is felt the patient would benefit from transfer to a higher level of care with further resources we are unable to administer including neurology and in-house test that we cannot obtain. Along with potential for treatment with IVIG which we are unable to administer. Patient graciously excepted to [place] for transfer. Problems addressed as follows: -FERMIN: Unclear etiology however suspect likely prerenal due to poor p.o. intake. Patient was started on Bactrim for her UTI, this may also be a component in her FERMIN. Gentle hydration for the past several days. BUN has gradually improved from 80s to mid 60s. Creatinine however has improved minimally from high 4-4.1 today. Continuing to make urine. CT abdomen pelvis did not show any hydronephrosis or nephrolithiasis. Baseline creatinine appears to be about 1. Progressive weakness -Unclear etiology. Weakness however from further review and discussion of history with appears to have become more progressive and acute over the past week. Patient received COVID and flu vaccine little over 2 weeks ago. Was diagnosed with UTI last Thursday. Starting last Thursday began to develop worsening weakness in her legs to the point that she could not stand or walk by Thursday. Came to the ER because of her progressive weakness with weakness noted is 1 out of 5 in her legs. This is only progressed over the course of the weekend and patient is unable to move her arms well. Negative inspiratory force on exam this morning of . Patient's voice is more weak and she is having difficulty eating as she is starting to choke and not wanting to eat. Noted to have absent reflexes in her patellar tendons. Significant concern for Guillain-Duque?, myasthenia gravis, or some other progressive neurologic disorder. As I am unable to work this up any further, discussed transfer with multiple facilities. Patient graciously excepted to [place]. Strong concern for further decompensation, need for neurology, need for possible IVIG which we are unable to administer. Rhabdomyolysis -Given patient's immobility, she has an elevated CK at this time. Complaining of muscle aches. CK greater than thousand. Continuing IV fluid resuscitation. Holding statins. HT
[2023-09-14 18:00] LABS: Potassium 2.5 mmoL/L (3.5-5.1)
--- NOTE | 2023-09-14 18:34 | PC.NURSE ---
pt has been a total assist with turning and reposition. ref all po meds due to 'might not be able to swallow them pt did not want to attempt crushing meds. pt has been accepted to [facility] by Dr. Kong, waiting for a call for a bed, aware and currently at bs. pt requesting something to knock me out and help me sleep' md aware and does not want to give sedatives at this time. pt requesting something for pain. cb within reach, continue to monitor.
[2023-09-14 20:00] VITALS: BP 126/79; PULSE 97; RESP 17; TEMP 37; O2SAT 100
--- NOTE | 2023-09-15 00:48 | PC.NURSE ---
pt transported off floor via EMS @00;47
== END 2023-09-15 00:47 | disposition short-term general hospital (02) | DRG 683 ==
LOC: ER 15:50 → 2ND 19:18
PROVIDERS: Internal Medicine Adolescent Medicine; Admitting Provider Internal Medicine; Emergency Provider Emergency Medicine; Visit Provider Internal Medicine
DX: N17.9 Acute kidney failure, unspecified (principal); E87.20 Acidosis, unspecified; N39.0 Urinary tract infection, site not specified; M62.82 Rhabdomyolysis; I10 Essential (primary) hypertension; E11.69 Type 2 diabetes mellitus with other specified complication; I25.10 Atherosclerotic heart disease of native coronary artery without angina pectoris; G40.909 Epilepsy, unspecified, not intractable, without status epilepticus; F32.A Depression, unspecified
CPT/HCPCS: 36415; 71045; 74176; 80048; 80053; 81001; 82550; 82962; 83605; 83690; 83735; 85007; 85025; 87040; 87086; 87636; 92610; 93005; 97110; 97163; 97165; 97530; 99285; C1751; J0131; J1956; J2405; J3475

== ENCOUNTER 2025-08-02 08:26 | Outpatient (CLI) | payer MEDICARE, OTHER, SELFPAY ==
--- OUTSIDE RECORDS SUMMARY | 2025-08-02 08:30 | XMS_ITS | Referral Summary ---
Author Organization [facility] ([place], [place], [place], [place]) Address [address] [place] [address] Care Team Providers Care Camp Housekeeper Name Role Phone Alexander Whitehead MD Primary Care Provider [phone] Allergies Active Allergy Reactions Criticality Noted Date Comments Codeine Other (See Comments),Rash High 10/15/2006 Other reaction(s): PASSES OUT fainting and choking Rosuvastatin Other (See Comments) High 10/07/2023 Severe rhabdomyopathy Hydrocodone Bitartrate Other (See Comments) 06/17/2007 Penicillins Hives,Rash High 10/15/2006 Other reaction(s): I-RASH Phenytoin Other (See Comments),Swelling High 10/15/2006 Other reaction(s): PASSES OUT choking and swelling Medications clopidogreL (PLAVIX) 75 mg tablet Take 1 tablet (75 mg total) by mouth daily. 2 Active divalproex (DEPAKOTE) 250 MG EC tablet Take 1 tablet (250 mg total) by mouth 2 (two) times daily. 3 Active metFORMIN (GLUCOPHAGE) 1000 MG tablet Take 1 tablet (1,000 mg total) by mouth 2 (two) times daily. 2 Active glipiZIDE (GLUCOTROL) 10 MG tablet Take 1 tablet (10 mg total) by mouth daily. 2 Active triamterene-hy droCHLOROthiaz isaiah (MAXZIDE-25) 37.5-25 mg per tablet Take 1 tablet by mouth daily. 3 Active linaGLIPtin (Tradjenta) 5 mg tablet Take 1 tablet (5 mg total) by mouth daily. 3 Active montelukast (SINGULAIR) 10 mg tablet Take 1 tablet (10 mg total) by mouth nightly. Active cyanocobalamin (VITAMIN B-12) 1,000 mcg/mL injection Inject 1 mL (1,000 mcg total) subcutaneously once a week. 1 mL 4 Active clotrimazole (LOTRIMIN) 1 % cream Apply topically. 4 Active fluconazole (DIFLUCAN) 100 MG tablet Take 1 tablet (100 mg total) by mouth daily. 4 Active Fiasp FlexTouch U-100 Insulin 100 unit/mL (3 mL) InPn Inject subcutaneously. 4 Active Lantus Solostar U-100 Insulin 100 unit/mL (3 mL) InPn Inject subcutaneously. 4 Active insulin lispro (HUMALOG, ADMELOG) 100 unit/mL InPn Inject subcutaneously. 4 Active NovoLIN 70/30 U-100 Insulin 100 unit/mL (70-30) injection Inject subcutaneously. 4 Active mirtazapine (REMERON) 15 MG tablet Take by mouth. 4 Active pantoprazole (PROTONIX) 40 MG tablet Take 1 tablet (40 mg total) by mouth daily. 4 Active BD AutoShield Duo Pen Needle 30 gauge x 3/16 Ndle 4 Active predniSONE (DELTASONE) 5 MG tablet Take by mouth. 4 Active tamsulosin (FLOMAX) 0.4 mg Cap 24 hr capsule Take 1 capsule (0.4 mg total) by mouth daily. 4 Active valACYclovir (VALTREX) 1000 MG tablet Take 1 tablet (1,000 mg total) by mouth 2 (two) times daily. 4 Active Active Problems Problem Noted Date Diagnosed Date Weakness 09/15/2023 Hypertension 09/15/2023 09/15/2023 Diabetes mellitus 09/15/2023 09/15/2023 Depression 09/15/2023 09/15/2023 Coronary artery disease 09/15/2023 09/15/20 23 Seizure disorder 09/15/2023 09/15/2023 Urinary tract infectious disease 05/13/2018 09/15/2023 Resolved Problems Problem Noted Date Diagnosed Date Resolved Date Abdominal pain 09/15/2023 09/15/2023 Social History Tobacco Use Types Packs/Day Years Used Date Smoking Tobacco: Never Smokeless Tobacco: Never Tobacco Cessation:Counseling Given: Not Answered Alcohol Use Standard Drinks/Week Comments Not Currently 0 (1 standard drink = 0.6 oz pur e alcohol) PRAPARE - Transportation Answer Date Re corded In the past 12 months, has l ack of transportation kept you from medical appointments or from getting medications? No 09/15/2023 Lack of Transportation (Non-Medical) Not on file 09/15/2023 Food Insecurity Answer Date Recorded Food run out past 12 months Not on file 10/12 Food did not last past 12 months Not on file 10/21/2023 Employment Answer Date Recorded Help finding and keeping a job Not on file 0 10/21/2023 Family and Community Support Answer Andres e Recorded Help with Day to Day Activities Not on file 10/21/2023 Feeling Lonely or Isolated Not on file 10/21 Educational Attainment Answer Date John rded Speak language other than Taiwanese at home Not on file 10/21/2023 Want help with school or training Not on file 10/21/2023 Substance Use Answer Date Recorded Used prescription meds for non-medical reasons N ot on file 10/21/2023 Used illegal drugs past 12 months Not on file 10/21/2023 Comments No Sex and Gender Information Value Date Recorded Sex Assigned at Not on file Legal Sex Female 2:33 PM CDT Gender Identity Not on file Sexual Orientation Not on file Last Filed Vital Signs Vital Sign Reading Time Taken Comments Blood Pressure 113/77 11/18/2023 9:55 AM EST Pulse 102 11/18/2023 9:55 AM EST Temperature 36.7 C (98.1 F) 10/07/2023 5:15 AM EST Respiratory Rate 16 10/07/2023 5:15 AM EST Oxygen Saturation 100% 10/07/2023 10:25 AM EST Inhaled Oxygen Concentration - - Weight 61.2 kg (135 lb) 11/18/2023 12:07 PM EST Height 167.6 cm (5' 6 ) 11/18/2023 12:07 PM EST Body Mass Index 21.79 11/18/2023 12:07 PM EST Plan of Treatment Not on file Procedures Procedure Name Priority Date/Time Associated Diagnosis Comments HEPATITIS C ANTIBODY Routine 09/16/2023 10:50 AM EST from Last 3 Months or Most Recently Relevant to Health Maintenance Results * Hepatitis C antibody (09/16/2023 10:50 AM EST) Hepatitis C Ab Nonreactive Nonreactive, Equivocal 09/16/2023 12:22 PM EST [facility] Comment:A negative test resu lt does not exclude the possibility of exposure to the hepatitis C virus and a reactive result does not exclude co-infection by another hepatitis virus. Blood Venipuncture / Unknown 09/16/2023 10:50 AM EST 09/16/2023 11:15 AM EST Cailin Liu MD LAB BLOOD ORDERABLES Final Resu lt Performing Organization Address City/State/[facility] Co de Phone Number [facility] [address] [phone] from Last 3 Months or Most Recently Relevant to Health Maintenance Insurance MEDICARE PART A B SUPP Advance Directives For more information, please contact: [phone] * Full Code (Latest Code Status on File) Date Activated Date Inactivated Comments 09/15/2023 4:02 AM 10/07/2023 12:06 PM -Attempt R esuscitation if person has no pulse and is not breathing. -If no pulse or not breathing attempt CPR/CODE. -Call Rapid Response if patient is in distress. Care Teams Camp Housekeeper Relationship Specialty Start Date End Date Alexander Whitehead MD [address] [place] [address] [place] [address] PCP - General Family Medicine 09/18/23
--- OUTSIDE RECORDS SUMMARY | 2025-08-02 08:30 | XMS_ITS | Clinical Summary ---
Author Organization [facility] ystem Address [address] [place] [address] Care Team Providers Care Cafeteria Director Name Role Phone Unavailable Primary Care Provider Unavailabl e Social History Tobacco Use Types Packs/Day Years Used Date Smoking Tobacco: Never Assessed Abuse Screen Answer Date Recorded Unsafe at Home or Work/School Not on file Feels Threatened by Someone? Not on file 06/2023 Does Anyone Keep You from Co ntacting Others or Doint Things Outside the Home? Not on file 07/20/2023 Physical Sign of Abuse Present Not on file 1 Housing Stability Answer Date Recorded Current Living Arrangements Not on file 06/2023 Potentially Unsafe Housing Conditions Not on haris e 07/20/2023 Family and Community Support Answer Andres e Recorded Help with Day-to-Day Activities Not on file 07/20/2023 Lonely or Isolated Not on file 07/20/2023 Employment Answer Date Recorded Do you want help finding or keeping work or a amanda b? Not on file 07/20/2023 Disabilities Answer Date Recorded Concentrating, Remembering, or Making Decisions Difficulty Not on file 07/20/2023 Doing Errands Independently Difficulty Not on fi le 07/20/2023 Education Answer Date Recorded Help with school or training? Not on file Preferred Language Not on file 07/20/2023 Comments Unknown Sex and Gender Information Value Date Recorded Sex Assigned at Not on file Legal Sex Female 10:02 AM EDT Gender Identity Not on file Sexual Orientation Not on file Last Filed Vital Signs Vital Sign Reading Time Taken Comments Blood Pressure 110/68 04/18/2014 11:36 AM EDT Pulse - - Temperature - - Respiratory Rate - - Oxygen Saturation - - Inhaled Oxygen Concentration - - Weight 78.9 kg (174 lb 0.2 oz) 04/18/2014 11:36 AM EDT Height 157.5 cm (5' 2 ) 04/18/2014 11:36 AM EDT Body Mass Index 31.83 04/18/2014 11:36 AM EDT Plan of Treatment Health Maintenance Due Date Last Done Comments ANNUAL PHYSICAL 1945 DXA SCAN 1945 HEPATITIS C SCREENING 1945 TDAP/TD VACCINES (1 - Tdap) 1964 Pneumococcal Vaccine 50+ (1 of 1 - PCV) 1995 ZOSTER VACCINE (1 of 2) 1995 RSV Vaccine - Adults (1 - 1-dose 75+ series) INFLUENZA VACCINE 05/12/2025 COVID-19 Vaccine (1 - season) 2025
--- OUTSIDE RECORDS SUMMARY | 2025-08-02 08:30 | XMS_ITS | Clinical Summary ---
Author Organization Healthcare Address [address] [place] [address] Care Team Providers Care Egg Processor Name Role Phone Unavailable Primary Care Provider Unavailabl e Allergies Active Allergy Reactions Criticality Noted Date Comments Codeine Other - please docum ent in the comment field,Rash High 10/15/2006 fainting and choking Penicillins Hives,Rash High 10/15/2006 Phenytoin Swelling,Other - ple ase document in the comment field High 10/15/2006 choking and swelling Medications clopidogrel (Plavix) 75 MG tablet 2 Active divalproex (Depakote) [address] tablet 3 Active glipiZIDE (Glucotrol) 10 MG tablet 2 Active Tradjenta 5 MG tablet 3 Active meloxicam (Mobic) 7.5 MG tablet 2 Active metFORMIN (Glucophage) 1000 MG tablet 2 Active metoprolol succinate XL (Toprol-XL) 25 MG 24 hr tablet 2 Active montelukast (Singulair) 10 MG tablet 2 Active pantoprazole (ProtoNix) 20 MG EC tablet Take 1 tablet 30 minutes prior to breakfast 5 Active Pioglitazone HCl (ACTOS PO) Actos Activ e rosuvastatin (Crestor) 40 MG tablet 2 Active triamterene-hyd rochlorothiazid e (Maxzide-25) 37.5-25 MG tablet 3 Active Family History Medical History Relation Name Comments Lung cancer Brother Thyroid disease Daughter Lung cancer Father Cardiac disorder Mother Lung cancer Mother Stroke Mother Diabetes Other 1 Hypertension Other 2 Lung cancer Sister Relation Name Status Comments Brother Daughter Father Mother Other 1 Other 2 Sister Social History Tobacco Use Types Packs/Day Years Used Date Smoking Tobacco: Never Smokeless Tobacco: Never Tobacco Cessation:Counseling Given: Not Answered Alcohol Use Standard Drinks/Week Comments Not Currently 0 (1 standard drink = 0.6 oz pure alcohol) Alcoholic Drinks/day: Former consumption of alcohol Comments Unknown Sex and Gender Information Value Date Recorded Sex Assigned at Not on file Legal Sex Female 7:48 PM EDT Gender Identity Not on file Sexual Orientation Not on file Last Filed Vital Signs Vital Sign Reading Time Taken Comments Blood Pressure 132/84 12/22/2022 1:05 PM EDT Pulse 88 12/22/2022 1:05 PM EDT Temperature 36.9 C (98.4 F) 01/11/2019 2:20 PM EDT Respiratory Rate - - Oxygen Saturation - - Inhaled Oxygen Concentration - - Weight 70.6 kg (155 lb 10.3 oz) 12/22/2022 1:05 PM EDT Height 157.5 cm (5' 2 ) 12/22/2022 1:05 PM EDT Body Mass Index 28.47 12/22/2022 1:05 PM EDT Plan of Treatment Health Maintenance Due Date Last Done Comments [facility]-Bone Density Scan 1945 [facility]-Depression Screening 1945 [facility]-Hepatitis C Screening 1945 [facility]-Medicare Annual Wellness (AWV) 1945 [facility]-Infant/Child/Adol SDOH Screenings 1945 [facility]- SDOH Screenings 1963 [facility]-Adult SDOH Screenings 1963 [facility]-DTaP,Tdap,and Td Vaccines (1 - Tdap) 1964 [facility]-Pneumococcal Vaccine: 50+ Years (1 of 1 - PCV) 1995 [facility]-Zoster Vaccines (1 of 2) 1995 [facility]-RSV Vaccine: 60+ Years or (1 - 1-dose 75+ series) 2020 [id number] Vaccine (6 - 2024- season) 2025 08/14/2023, 01/23/2022, 08/08/2021, Additional history exists [facility]-Influenza Vaccine (#1) 2025 08/14/2023, [facility]-Obesity Intervention Completed 12/22/2022 HPV Vaccines Aged Out No longer eligi ble based on patient's age to complete this topic [facility]-HIB Vaccines Aged Out No longer e ligible based on patient's age to complete this topic [facility]-Hepatitis A Vaccines Aged Out No longer eligible based on patient's age to complete this topic [facility]-IPV Vaccines Aged Out No longer e ligible based on patient's age to complete this topic [facility]-Rotavirus Vaccines Aged Out No lo nger eligible based on patient's age to complete this topic Insurance MEDICARE [facility]
--- OUTSIDE RECORDS SUMMARY | 2025-08-02 08:31 | XMS_ITS | Encounter Summary ---
Author Organization Healthcare Address [address] [place] [address] Care Team Providers Care Marble Cutter Operator Name Role Phone Unavailable Primary Care Provider Unavailabl e Encounter Details Date Type Department Care Team (Late st Contact Info) Description 12/31/2023 Community Orders Community Practice [address] [place] [address] Matteo Dunaway MD [address] [place] [address] Muscle weakness (generalized) (Primary Dx) Social History Tobacco Use Types Packs/Day Years Used Date Smoking Tobacco: Never Smokeless Tobacco: Never Alcohol Use Standard Drinks/Week Comments Not Currently 0 (1 standard drink = 0.6 oz pure alcohol) Alcoholic Drinks/day: Former consumption of alcohol Comments Unknown Sex and Gender Information Value Date Recorded Sex Assigned at Not on file Legal Sex Female 7:48 PM EDT Gender Identity Not on file Sexual Orientation Not on file documented as of this encounter Plan of Treatment Not on file documented as of this encounter Visit Diagnoses Diagnosis Muscle weakness (generalized)- Primary documented in this encounter Additional Health Concerns Assessment Noted Time A fall risk assessment has been complete d for the patient 12/22/2022 1:14 PM EDT A Body Mass Index follow-up plan has been documented for the patient 12/22/2022 2:02 PM EDT documented as of this encounter
--- OUTSIDE RECORDS SUMMARY | 2025-08-02 08:31 | XMS_ITS | Clinical Summary ---
Author Organization [facility] ([place], [place], [place], [place]) Address [address] [place] [address] Care Team Providers Care Hull Grinder Name Role Phone Alexander Whitehead MD Primary Care Provider [phone]- [phone] Allergies Active Allergy Reactions Criticality Noted Date [...] Date John rded Speak language other than Samoan at home Not on file 10/21/2023 Want [...] 11/18/2023 12:07 PM EST Plan of Treatment Health Maintenance Due Date Last Done Comments DXA SCAN 1945 Diabetic Kidney Health Evalu ation (KED) 1945 Diabetic Eye Exam 1955 DTAP/TDAP/TD VACCINES (1 - Tdap) 1964 Pneumococcal 50+ years (1 of 2 - PCV) 1964 Shingles Vaccine (Zoster) (1 of 2) 1995 Respiratory Syncytial Virus (RSV) Adult or (1 - 1-dose 75+ series) 2020 Hemoglobin A1C 09/15/2023 Medicare Initial AWV [id number] 09/16/2024 Tobacco Cessation Counseling and Screening (12+) 10/01/2024 10/01/2023 Falls Risk Screening 10/12/2024 COVID-19 VACCINE (6 - 2024-2 6 season) 2025 08/14/2023, 01/23/2022, 08/08/2021, Additional history exists Influenza Vaccine (#1) 2025 08/14/2023, 2020 Hepatitis C Screening Completed 09/16/2023 Procedures Procedure Name Priority Date/Time Associated Diagnosis Comments HEPATITIS C ANTIBODY Routine 09/16/2023 10:50 AM EST from Last 3 Months or Most Recently Relevant to Health Maintenance Results * Hepatitis C antibody (09/16/2023 10:50 AM EST) Hepatitis C Ab Nonreactive Nonreactive, Equivocal 09/16/2023 12:22 PM EST [facility] Comment:A negative test resu lt does not exclude the possibility of exposure to the hepatitis C virus and a reactive result does not exclude co-infection by another hepatitis virus. Blood Venipuncture / Unknown 09/16/2023 10:50 AM EST 09/16/2023 11:15 AM EST us Cialin Liu MD LAB BLOOD ORDERABLES Final Resu lt [facility] [address] [place] [address], [facility] [phone] from Last 3 Months or Most Recently Relevant to Health Maintenance Insurance MEDICARE PART A B SUPP Advance Directives For more information, please contact: [phone] * Full Code (Latest Code Status on File) Date Activated Date Inactivated Comments 09/15/2023 4:02 AM 10/07/2023 12:06 PM -Attempt R esuscitation if person has no pulse and is not breathing. -If no pulse or not breathing attempt CPR/CODE. -Call Rapid Response if patient is in distress. Care Teams Hull Grinder Relationship Specialty Start Date End Date Alexander Whitehead MD [address] [place] [address] [place] [id number] PCP - General Family Medicine 09/18/23
--- OUTSIDE RECORDS SUMMARY | 2025-08-02 08:31 | XMS_ITS | Encounter Summary ---
Author Organization Healthcare Address [address] 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
[2025-08-02 08:42] LABS: Hematocrit 41.6 % (37.0-47.0); Hemoglobin 14.2 g/dL (12.2-16.2); Immature Granulocytes % 1.0 %; Mean Corpuscular HGB Conc 34.1 g/dL (31.8-35.4); Mean Corpuscular Hemoglobin 32.3 pg (27.0-31.2); Mean Corpuscular Volume 94.5 fl (81-99); Nucleated Red Blood Cells % 0 %; Platelet Count 250 K/mm3 (142-424); Red Blood Count 4.40 M/mm3 (4.20-5.40); Red Cell Distribution Width-SD 45.6 fL; White Blood Count 11.2 K/mm3 (4.8-10.8)
[2025-08-02 08:46] LABS: Albumin Level 3.6 g/dl (3.5-5.0); Chloride 99 mmol/L (98-107); Sodium 136 mmol/L (136-145)
[2025-08-02 08:47] LABS: Potassium 3.6 mmoL/L (3.5-5.1)
[2025-08-02 08:49] LABS: Alanine Aminotransferase 18 U/L (12-78); Albumin/Globulin Ratio 0.9 (1.1-1.8); Alkaline Phosphatase 106 U/L (38-126); Anion Gap 11.6 mEq/L (5-15); Aspartate Amino Transferase 26 U/L (14-36); Bilirubin,Total 0.2 mg/dl (0.2-1.3); Blood Urea Nitrogen 27 mg/dl (7-17); Carbon Dioxide 29 mmol/L (22.0-30.0); Creatinine,Serum 0.90 mg/dl (0.52-1.04); Estimated Glomerular Filt Rate 60 ml/min (>60); GFR (African American) 73 ML/MIN (>60); Globulin 3.8 g/dL (1.3-3.2); Total Protein,Serum 7.4 g/dl (6.3-8.2)
[2025-08-02 08:50] LABS: Calcium 9.0 mg/dl (8.4-10.2); Cholesterol 220 mg/dl (140-200); Glucose 119 mg/dl (74-100); HDL Cholesterol 39 mg/dl (40-60); Triglycerides 154 mg/dl (30-150)
[2025-08-02 09:17] LABS: Free T4 (Free Thyroxine) 1.65 ng/dl (0.78-2.19)
[2025-08-02 09:20] LABS: Hemoglobin A1C 10.0 % (4.0-6.0)
[2025-08-02 09:30] LABS: Valproic Acid, (Depakene) 50.0 ug/ml (50-100)
[2025-08-02 09:54] LABS: Thyroid Stimulating Hormone 4.38 uIU/mL (0.465-4.68)
== END 2025-08-02 23:59 | disposition home or self-care (01) ==
PROVIDERS: PCP Family Medicine; Visit Provider Family Medicine
DX: E11.9 Type 2 diabetes mellitus without complications (principal); F41.9 Anxiety disorder, unspecified; D64.9 Anemia, unspecified; G40.909 Epilepsy, unspecified, not intractable, without status epilepticus
CPT/HCPCS: 36415; 80053; 80061; 80164; 83036; 84439; 84443; 85025